=== PATIENT | female | born 1940 | race Caucasian/White ===

== ENCOUNTER 2019-01-17 14:34 | Observation (INO) | payer MEDICARE ==
[2019-01-17 16:04] LABS: #Basophils 0.1 thou/uL (0.0-0.2); #Eosinphils 0.1 thou/uL (0.0-0.7); #Lymphocytes 1.2 thou/uL (1.20-3.40); #Monocytes 0.5 thou/uL (0.11-0.59); %Basophils 0.6 % (0.0-1.0); %Eosinophils 1.1 % (0.0-10.0); %Lymphocytes 13.9 % (21.0-51.0); %Neutrophils 78.4 % (42.0-75.0); Hemoglobin 13.7 g/dL (12.0-16.0); Mean Corpuscular HGB CONC 31.4 g/dL (32.0-36.0); Mean Corpuscular Hemoglobin 28.6 pg (27.0-31.0); Mean Corpuscular Volume 90.9 fL (78.0-98.0); Mean Platelet Volume 7.4 fL (7.4-10.4); Platelet Count 207 thou/uL (130-400); RBC Distribution Width 12.1 % (11.5-14.5); Red Blood Cell (RBC) Count 4.79 mill/uL (4.20-5.40); White Blood Cell (WBC) Count 8.9 thou/uL (4.8-10.8)
[2019-01-17 16:31] LABS: ALT (SGPT) 20 U/L (8-55); AST (SGOT) 18 U/L (5-34); Albumin 4.5 g/dL (3.4-4.8); Alkaline Phosphatase 64 U/L (40-150); Anion Gap 11 mmol/L (10-20); BUN (Urea Nitrogen) 24 mg/dL (9.8-20.1); Bilirubin, Total 0.3 mg/dL (0.2-1.2); Calc. Creatinine Clearance 0 mL/min (70-130); Calcium 9.8 mg/dL (7.8-10.44); Carbon Dioxide 26 mmol/L (23-31); Chloride 109 mmol/L (98-107); Estimated GFR-MDRD 45; Globulin 2.8 g/dL (2.4-3.5); Glucose 100 mg/dL (83-110); Protein, Total 7.3 g/dL (6.0-8.3); Sodium 141 mmol/L (136-145)
--- NOTE | 2019-01-17 16:43 | RAD ---
PA AND LATERAL VIEWS CHEST: 01/17/19 HISTORY: High blood pressure. FINDINGS: The heart size is normal. The aorta is tortuous. The lungs are expanded without focal areas of consol idation, pneumothoraces, or pleural effusions. There are degenerative changes in the spine. IMPRESSION: No acute process. POS: ISABEL
[2019-01-17] MEDS ORDERED: Labetalol HCl 100 MG/20 ML VIAL ONE (17:10)
[2019-01-17] MEDS ORDERED: Aspirin Chewable 81 MG TAB ONE (18:06)
[2019-01-17] MEDS ORDERED: Nitroglycerin 2% Ointment 1 INCH/1 GM Packet ONE ×2 (18:16→21:33)
--- NOTE | 2019-01-17 20:09 | CT ---
CT BRAIN WITHOUT CONTRAST: HISTORY:Dizziness, nausea, hypertension FINDINGS: There is a 1 cm calcified meningioma in the left posterior parietal region. No evidence of acute infarct, hemorrhage, midline shift or abnormal extra-axial fluid collections is seen. The ventricular size is appropriate and the basilar cisterns are patent. The bony calvarium is intact. The mastoid air cells are well aerated. There is mild mucosal disease in the paranasal sinuses. IMPRESSION: No CT evidence of acute intracranial process.
[2019-01-17] MEDS ORDERED: Ondansetron ODT 4 MG TAB PO PRN (22:31)
[2019-01-17] MEDS ORDERED: Acetaminophen 325 MG TAB PO PRN (22:31)
[2019-01-17] MEDS ORDERED: Ondansetron PF 4 MG/2 ML Vial IVP PRN (22:31)
[2019-01-18] MEDS ORDERED: PROVENTIL INHALER 6.7 G (200 INHALATIONS) INH PRN (01:17)
[2019-01-18 01:21] VITALS: BMI 28.3
[2019-01-18] MEDS ORDERED: hydrALAZINE 20 MG/ML VIAL SLOW IVP PRN (01:22)
[2019-01-18] MEDS: traMADol HCl 50 MG TAB PO PRN ×2 (02:09→20:55)
--- NOTE | 2019-01-18 03:58 | HP ---
PRIMARY CARE DOCTOR: None reported. CODE STATUS: Full code. TIME OF EVALUATION: 9:15 p.m. CHIEF COMPLAINT: "I get dizzy and have very high blood pressure." HISTORY OF PRESENT ILLNESS: This 78-year-old female patient, past medical history of hypertension, asthma, and COPD, came to the hospital after having an episode of dizziness. Patient reported that she was with her dog trying to place the leash from the dog, all of the sudden she started having severe dizziness. She was unable to stand up. She has to get her phone and call for help. She did not fall. Symptoms were sudden, associated with nausea. No clear triggers. Alleviating factors were severe given her inability to walk. REVIEW OF SYSTEMS: CONSTITUTIONAL: No fever or chills or generalized weakness. RESPIRATORY: No cough or sputum production or shortness of breath. CARDIOVASCULAR: No chest pain or palpitation. GASTROINTESTINAL: No nausea, no vomiting, diarrhea, or abdominal pain. ELEVATOR SUPERVISOR: Patient had dizziness. No headache or feeling lightheaded. GENITOURINARY: No burning on urination. EXTREMITIES: No leg swelling. All other systems were reviewed and negative, except for the findings mentioned above. PAST MEDICAL HISTORY: As mentioned in HPI. SURGICAL HISTORY: Hysterectomy and oral surgery. PSYCH HISTORY: Anxiety and depression. FAMILY HISTORY: Reviewed and non contributory for current presentation. SOCIAL HISTORY: No alcohol. No drugs. No smoking history. Patient lives at home alone. ALLERGIES: KNOWN ALLERGIES TO IODINE. MEDICATIONS: Reported medication; 1. Lisinopril. 2. ProAir HFA. PHYSICAL EXAMINATION: VITAL SIGNS: On presentation, blood pressure with heart rate 77, respiratory rate was 16, temperature 98.2 pain was 5, and oxygen saturation was 96. GENERAL APPEARANCE: The patient is alert and oriented, not in acute distress. HEENT: Eyes; normal conjunctivae. Moist oral mucosa. Anicteric. No JVD. RESPIRATORY: Bilateral air entry. No rales. No wheezes. Symmetric expansion. CARDIOVASCULAR: Normal rate, regular rhythm. No murmurs. No gallop. No edema. Patient is hypertensive. ABDOMEN: Soft. Normal bowel sounds. MUSCULOSKELETAL: Baseline range of motion and strength. No tenderness. SKIN: Warm, intact. No pallor. No rash. No redness. Peripheral pulses are present. Capillary refill seems to be intact. NEUROLOGIC: No evidence of any new focal weakness. Patient has horizontal nystagmus. Baseline speech. 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 Other cranial nerves seems to be intact. PSYCH: Patient is in good mood. No anxiety. Optimal judgment. LABORATORY DATA: EKG; patient has sinus rhythm with some PACs, left anterior fascicular block, rate 65 with [place] 170, QRS 122, and QT corrected 426. Chest x- ray, no acute process. Brain CT, no CTA evidence of acute intracranial process. LABORATORY DATA: Reviewed. The patient has white count 8.9, hemoglobin 13.7, MCV 90.9, and platelet count 207. Chemistry; sodium 141, potassium 5.0, chloride 109, carbon dioxide 26, anion gap 11, BUN 24, creatinine 1.16, GFR 45, glucose 100, calcium 9.8, total bilirubin 0.3, AST 18, ALT 20, and alk phos 64. Troponin was negative. Serum total protein 7.3, albumin 4.5 with globulin 2.8, and albumin-globulin ratio is 1.6. ASSESSMENT AND PLAN: The patient will be placed in the hospital with following medical problems: 1. Possible transient ischemic attack. Patient has significant vertigo and she was unable to stand up or walk, so we are ordering stroke protocol. By the time of my examination, patient reported still having the same symptoms. She also has some horizontal nystagmus that could be related to the symptoms. We will follow the stroke protocol , Neuro evaluation. tele monitoring. 2. Hypertensive urgency. We will allow some permissive hypertension due to stroke, we will reconcile home medications. 3. History of asthma. This is chronic, stable. No need for any acute intervention at this point. Reconcile home medications. 4. Deep venous thrombosis prophylaxis. Job ID: [id number] [facility]
[2019-01-18 05:35] LABS: #Eosinphils 0.2 thou/uL (0.0-0.7); #Lymphocytes 1.6 thou/uL (1.20-3.40); #Monocytes 0.8 thou/uL (0.11-0.59); #Neutrophils 5.1 thou/uL (1.40-6.50); %Basophils 0.3 % (0.0-1.0); %Eosinophils 2.8 % (0.0-10.0); %Lymphocytes 20.5 % (21.0-51.0); %Monocytes 9.8 % (0.0-10.0); %Neutrophils 66.5 % (42.0-75.0); Hemoglobin 11.6 g/dL (12.0-16.0); Mean Corpuscular HGB CONC 31.8 g/dL (32.0-36.0); Mean Corpuscular Hemoglobin 28.8 pg (27.0-31.0); Mean Corpuscular Volume 90.7 fL (78.0-98.0); Mean Platelet Volume 7.6 fL (7.4-10.4); Platelet Count 176 thou/uL (130-400); RBC Distribution Width 12.1 % (11.5-14.5); Red Blood Cell (RBC) Count 4.04 mill/uL (4.20-5.40); White Blood Cell (WBC) Count 7.6 thou/uL (4.8-10.8)
[2019-01-18 05:57] LABS: Anion Gap 11 mmol/L (10-20); BUN (Urea Nitrogen) 20 mg/dL (9.8-20.1); Calc. Creatinine Clearance 45 mL/min (70-130); Carbon Dioxide 24 mmol/L (23-31); Cardiac Risk 3.9 (Less than 4.5); Chloride 106 mmol/L (98-107); Cholesterol 193 mg/dl (< 200 Desired); Estimated GFR-MDRD 50; Glucose 87 mg/dL (83-110); HDL Cholesterol 50 mg/dL (>60 Neg Risk); LDL Cholesterol, Calculated 122 mg/dL; Potassium 3.9 mmol/L (3.5-5.1); Sodium 137 mmol/L (136-145); Triglycerides 107 mg/dL (Less than 150)
[2019-01-18] MEDS: Aspirin 325 mg Enteric Coated Tablet PO SCH (08:54)
[2019-01-18] MEDS: Enoxaparin Sodium 40 MG/0.4 ML SYRINGE SC SCH (08:54)
[2019-01-18] MEDS: Lisinopril 20 MG TAB PO SCH (08:55)
--- NOTE | 2019-01-18 08:57 | ULT ---
CAROTID DOPPLER: Ultrasound and Doppler studies performed on the extracranial carotid arteries. Color Doppler, spectra l analysis, and velocity recordings obtained. INDICATION: Stroke FINDINGS: Ultrasound reveals echogenic plaque in both bulb regions. Velocity recordings are increased in the right internal carotid artery. Velocities are recorded at 14 8 cm/s systolic. This indicates hemodynamically significant stenosis in the 50-70% range. Vertebral show antegrade flow. IMPRESSION: 1. Evidence of hemodynamically significant stenosis in the right internal carotid artery. Further abebe luation with CTA neck recommended.
[2019-01-18] MEDS ORDERED: diphenhydrAMINE 50 MG in Sodium Chloride 0.9% 50 ML IVPB SCH (11:45)
[2019-01-18] MEDS ORDERED: diphenhydrAMINE 50 MG/ML VIAL IVP SCH (11:45)
--- NOTE | 2019-01-18 11:56 | MRI ---
MRI Brain WO Con HISTORY:Dizziness, syncope and hypertension. COMPARISON: 01/17/2019 CT examination. FINDINGS: There is mild ventricular and sulcal prominence. Areas of increased T2 and FLAIR hyperinten sity are seen consistent with chronic white matter change. On the diffusion-weighted sequence there is no signs for acute infarct. No intra or extra-axial mass is identified. Mastoid air cells are clear there is some mucosal change within the right maxillary sinus. IMPRESSION: No acute intracranial abnormalities.
[2019-01-18] MEDS ORDERED: Amlodipine 5 MG TAB PO SCH (12:45)
--- NOTE | 2019-01-18 17:11 | PRG ---
DATE OF SERVICE: 01/18/2019 SUBJECTIVE: Ms. Tamez is a very pleasant 78-year-old female with past medical history significant for hypertension and history of tobacco abuse, who presented to the hospital with complaint of acute onset of dizziness. She reported that the room felt as if it was spinning and she had some associated nausea. She was actually trying to put a leash on her dog to go walking, but her symptoms forced her to lie down. Given the patient's risk factors, she is undergoing stroke workup. Her presenting symptoms have resolved. Her blood pressure has continued to be elevated despite receiving her home medication lisinopril. The patient does state that her blood pressure runs high at home in the 160s to 180s. The patient reports no chest pain or shortness of breath. She has no abdominal symptoms at this time. Her appetite is good. OBJECTIVE: VITAL SIGNS: Blood pressure 185/90, pulse is 59 to 64, O2 saturation is 95% on room air, temperature is 98.3. GENERAL: The patient is an elderly female, resting in bed, in no acute distress. HEENT: Head; atraumatic, normocephalic. Mucous membranes are moist. Extraocular movements intact. NECK: No lymphadenopathy. Trachea is midline. No JVD. CV: S1 and S2. Regular rate and rhythm. No appreciable murmurs, rubs, or gallops. LUNGS: Regular respiratory rate and pattern, overall clear. ABDOMEN: Positive bowel sounds. Soft, nontender. EXTREMITIES: No edema. +2 DP pulses bilaterally. SKIN: Warm and dry. No obvious rashes or abrasions. NEUROLOGIC: Cranial nerves 2 through 12 are intact. The patient is nonfocal. LABORATORY DATA: Hemoglobin 11.6, hematocrit 36.7, white blood cell count 7.6, platelet count 176. Sodium 137, potassium 3.9, chloride 106, carbon dioxide 24, creatinine 1.06, triglycerides 107, cholesterol 193, LDL 122, HDL 50. ASSESSMENT: 1. Dizziness, with presenting symptoms consistent with vertigo. Stroke workup has revealed carotid artery stenosis on the right. 2. Carotid artery stenosis per carotid duplex scan with velocities in the right internal carotid consistent with a 50% to 70% stenosis. 3. Hypertension, poorly controlled. 4. History of tobacco abuse. 5. Sinus bradycardia in the 50s, asymptomatic. 6. Iodine contrast allergy. PLAN: Given the patient's new diagnosis of carotid artery stenosis, we will proceed with CT angiogram of the neck. Will also initiate statin therapy with Lipitor 20 mg q.h.s. Regarding her hypertension, we will add amlodipine 5 mg daily and continue her lisinopril, avoiding beta-jose secondary to borderline bradycardia. May need to also add hydralazine if her blood pressure does not improve. She is being pretreated for her contrast allergy with Benadryl and prednisone. Further recommendations based on findings of imaging. We will also continue aspirin. Appreciate Neurology recommendations. Further recommendations based on hospital course. The care of this patient has been discussed with Dr. Ley, who agrees with the above. Job ID: [id number] [facility]
[2019-01-18] MEDS: predniSONE 50 MG TAB PO SCH (20:53)
[2019-01-18] MEDS ORDERED: Atorvastatin Calcium 20 MG TAB PO SCH (21:00)
--- NOTE | 2019-01-18 22:56 | CON ---
DATE OF CONSULTATION: 01/18/2019 CHIEF COMPLAINT: Dizziness. HISTORY OF PRESENT ILLNESS: The patient is a 78-year-old lady, who reports she had a dizzy spell once recently before prior to admission. She was trying to leash her dog, she bent down to do this, and she felt spinning sensation, lost her balance, and she was lying on the floor for about 5 minutes. She has had inner ear infections in the past and this dizzy spell is different. Her grandson came and got her, when she called in, she took another blood pressure medication and aspirin prior to coming in. She is not on aspirin on a daily basis. She feels that it makes her bruise. With this spell, she did not have any weakness or numbness or double vision or nausea. PAST MEDICAL HISTORY: She has anxiety, depression, and right eye macular degeneration. PAST SURGICAL HISTORY: Hysterectomy, oral surgery for . SOCIAL HISTORY: She does not smoke or drink alcohol. She lives by self. She is retired. She used to do clerical work. ALLERGIES: SHE HAS IODINE ALLERGY, WHICH CAUSES ITCHING. FAMILY HISTORY: There is no family history of stroke. Mother had coronary artery disease and history of hypertension in both her parents. ALLERGIES: SHE IS ALLERGIC TO CEFACLOR, IODINE, IODIDE-CONTAINING PRODUCTS, PENICILLIN. IODINE CAUSES ITCHING. REVIEW OF SYSTEMS: PULMONARY: Negative for shortness of breath or cough. CARDIAC: Negative for chest pain. GI: Negative for diarrhea, vomiting, or nausea. GENITOURINARY: Negative for bladder dysfunction. NEUROLOGICAL: Positive for dizziness. ENT: Positive for prior inner ear infection. LABORATORY DATA AND DIAGNOSTIC STUDIES: Laboratory workup; white count 7.6, hemoglobin 11.6, hematocrit 36.7, and platelet count 176. Chemistry; sodium 137, potassium 3.9, chloride 106, bicarb 24, BUN 20, creatinine 1.06, glucose 87, triglycerides 107, cholesterol 193, LDL 122, HDL 50, heart disease risk ratio 3.9. Her CT of the head was completed and it did not show any evidence of acute intracranial process. She also completed an MRI of the brain, which showed no acute infarct. She had an echocardiogram, which was normal and her carotid Doppler study showed hemodynamically significant stenosis in the right ICA, and further evaluation with CT and neck is recommended. HOME MEDICATIONS: Reviewed. PHYSICAL EXAMINATION: VITAL SIGNS: Temperature 98.3, blood pressure 198/91, and pulse is 59. GENERAL APPEARANCE: Well-built, well-nourished, very pleasant lady. CHEST: Clear vesicular breathing. CARDIOVASCULAR: S1 and S2 heard. No murmurs. ABDOMEN: Soft. NEUROLOGICAL: Higher intellectual functions normal. Cranial nerves, pupils 4 mm, reactive bilaterally. No facial asymmetry is noted. Sensation of face is intact. Normal hearing bilaterally. Tongue midline. No atrophy noted. Motor examination, bulk normal. Tone normal. Strength 5/5 in upper and lower extremities. Muscle groups tested are iliopsoas, hamstrings, quadriceps, ankle dorsiflexion, plantar flexion, deltoid, biceps, triceps, wrist extension and flexion, finger extension and flexion, and cerebellar [id number] and [id number] are normal. Deep tendon reflexes 2+ throughout. Sensory normal to touch. IMPRESSION: The patient is a 78-year-old lady with history of inner ear infections and had an episode similar to vertigo prior to arrival, but she was on the floor for 5 minutes. Her examination currently is normal. She has right internal carotid artery stenosis on carotid Doppler. We need to explore this possibility of carotid artery disease further, which could be causing her to have dizziness. RECOMMENDATIONS: I ordered CT angiogram. If CT angio is abnormal, please refer her to Vascular Surgery. Please call Neurology if you have any further questions. For now, we can continue anti-platelet agents such as aspirin along with statin for stroke prophylaxis. Job ID: [id number]
[2019-01-19] MEDS: predniSONE 50 MG TAB PO SCH ×2 (01:15→08:22)
[2019-01-19 05:27] LABS: Anion Gap 12 mmol/L (10-20); BUN (Urea Nitrogen) 20 mg/dL (9.8-20.1); Calc. Creatinine Clearance 36 mL/min (70-130); Calcium 9.3 mg/dL (7.8-10.44); Carbon Dioxide 26 mmol/L (23-31); Chloride 104 mmol/L (98-107); Estimated GFR-MDRD 39; Glucose 149 mg/dL (83-110); Potassium 4.5 mmol/L (3.5-5.1); Sodium 137 mmol/L (136-145)
[2019-01-19 05:29] LABS: Cardiac Risk 3.8 (Less than 4.5)
[2019-01-19] MEDS ORDERED: diphenhydrAMINE 50 MG CAP PO SCH (08:00)
[2019-01-19] MEDS: Aspirin 325 mg Enteric Coated Tablet PO SCH (08:22)
[2019-01-19] MEDS: Enoxaparin Sodium 40 MG/0.4 ML SYRINGE SC SCH (08:22)
[2019-01-19] MEDS: Lisinopril 20 MG TAB PO SCH (08:23)
[2019-01-19] MEDS ORDERED: cloNIDine 0.1 MG TAB PO PRN (08:57)
[2019-01-19] MEDS ORDERED: Amlodipine 5 MG TAB PO SCH (09:00)
[2019-01-19] MEDS ORDERED: Sodium Chloride 0.9% 1,000 ML IV SCH (09:00)
--- NOTE | 2019-01-19 10:22 | CT ---
CONTRAST ENHANCED CTA BRAIN AND NONCONTRAST ENHANCED CTA BRAIN: HISTORY: Vertigo. TECHNIQUE: Noncontrast enhanced CT images of the brain obtained. This is followed by contrast-enhanc ed CTA of the brain. 2-D and 3-D reconstruction images performed on an independent 3-D workstation. FINDINGS: There is a left temporal occipital area of osseous calcification possibly representing a calcified me ningioma or osteoma. The brain is otherwise unremarkable with no evidence of masses or lesions. CTA images demonstrate areas of bilateral apical lung parenchymal scarring. The aortic arch is unremarkable. The right brachiocephalic artery is patent. The right and left common carotid arteries are patent without evidence of significant plaques or sten osis. Minimal areas of atherosclerotic plaque seen in the distal most aspect of the right CCA. The right and left internal carotid arteries bilaterally are patent. Some atherosclerotic plaque seen in the proximal portion of the left vertebral artery. Vertebral jenna oni are otherwise unremarkable. The basilar artery is unremarkable. Intracranial CTA demonstrates normal flow seen in the IVONNE, MCA and IN[employer]OR[employer] CENT[employer] MANAGER vessels. No evidence of vascular malformation seen. IMPRESSION: No evidence of significant arterial vascular abnormality seen. Transcribed Date/Time: 01/19/2019 10:43 AM
[2019-01-19] MEDS ORDERED: Sodium Chloride 0.9% 500 ML IVPB SCH (13:30)
[2019-01-19 16:01] VITALS: TEMP 97.7
[2019-01-19 16:18] VITALS: BP 168/63
[2019-01-19] MEDS ORDERED: cloNIDine 0.1 MG TAB PO SCH (17:15)
--- NOTE | 2019-01-20 16:05 | CT ---
CONTRAST ENHANCED CTA BRAIN AND NONCONTRAST ENHANCED CTA BRAIN AND NECK: HISTORY: Vertigo. TECHNIQUE: Noncontrast enhanced CT images of the brain obtained. This is followed by contrast-enhanc ed CTA of the brain. 2-D and 3-D reconstruction images performed on an independent 3-D workstation. FINDINGS: There is a left temporal occipital area of osseous calcification possibly representing a calcified me ningioma or osteoma. The brain is otherwise unremarkable with no evidence of masses or lesions. CTA images demonstrate areas of bilateral apical lung parenchymal scarring. The aortic arch is unremarkable. The right brachiocephalic artery is patent. The right and left common carotid arteries are patent without evidence of significant plaques or sten osis. Minimal areas of atherosclerotic plaque seen in the distal most aspect of the right CCA. The right and left internal carotid arteries bilaterally are patent. Some atherosclerotic plaque seen in the proximal portion of the left vertebral artery. Vertebral jenna oni are otherwise unremarkable. The basilar artery is unremarkable. Intracranial CTA demonstrates normal flow seen in the IVONNE, MCA and BARREL PLATER vessels. No evidence of vascular malformation seen. IMPRESSION: No evidence of significant arterial vascular abnormality seen. Transcribed Date/Time: 01/20/2019 4:04 PM
== END 2019-01-19 17:31 | disposition home or self-care (01) ==
LOC: ERS 14:34 → 2SE 20:48
PROVIDERS: ADMIT Hospitalist; ATTEND Hospitalist
DX: R42 Dizziness and giddiness (principal); I16.0 Hypertensive urgency; I10 Essential (primary) hypertension; J44.9 Chronic obstructive pulmonary disease, unspecified; F41.9 Anxiety disorder, unspecified; F32.9 Major depressive disorder, single episode, unspecified; I65.21 Occlusion and stenosis of right carotid artery; Z79.899 Other long term (current) drug therapy; Z91.041 Radiographic dye allergy status; Z88.0 Allergy status to penicillin; Z88.1 Allergy status to other antibiotic agents
CPT/HCPCS: 70450; 70496; 70498; 70551; 71046; 80048 ×2; 80053; 80061 ×2; 84484; 85025 ×2; 93005; 93306; 93880; 96361; 96372 ×2; 96374; 96375; 96376; 97139 ×7; 97535; 99285; G0378 ×2; 36415; J0360; J1650; Q0153; Q0162

== ENCOUNTER 2019-03-24 08:18 | Outpatient (CLI) | payer MEDICARE ==
--- NOTE | 2019-03-24 10:18 | SJPRAD ---
Exam: 3 VIEWS LUMBAR SPINE: HISTORY: Low back pain. COMPARISON: None. FINDINGS: 5 lumbar type vertebral bodies. Vertebral body height is maintained. No fracture. No signif icant loss of disc space height. Minimal osteophyte formation at L3-L4. Mild hypertrophic changes in the posterior element at L4-L5 and L5-S1. IMPRESSION: No significant loss of disc space height. No fracture. Transcribed Date/Time: 03/24/2019 10:23 AM
== END 2019-03-24 08:19 | disposition home or self-care (01) ==
LOC: MWLC RAD 08:18
PROVIDERS: ATTEND Family Medicine
DX: M54.5 Low back pain (principal)

== ENCOUNTER 2019-05-07 12:07 | Outpatient (CLI) | payer MEDICARE ==
--- NOTE | 2019-05-07 13:22 | MRI ---
MRI OF THE LUMBAR SPINE WITHOUT CONTRAST: 05/07/19 INDICATION: Low back pain. COMPARISON: Prior exam dated 03/24/19. FINDINGS: There are five lumbar type vertebrae. Conus is seen to terminate at approximately L1. There is mild g rade I anterolisthesis of L3 on L4 which is likely degenerative. There is a 1.6 cm T1 hyperintense, T2 hyperintense lesion involving the left mid kidney which may ref lect a slightly proteinaceous cyst. No enlarged lymph nodes are evident. At L5-S1, there is a broad based disc bulge with moderate facet joint degenerative change. No appreci able neural foraminal narrowing. Broad based bulge and facet hypertrophy does encroach upon the later al recesses but does not definitely impinge the traversing S1 nerve roots. At L4-5, there is a broad based bulge with facet hypertrophy and ligamentum flavum hypertrophy. There is an anteromedial protruding synovial cyst off of the right L4-5 facet complex measuring 7.5 mm. Th e cyst in addition to the disc degeneration and facet osteoarthritic change induces moderate central canal narrowing. There is mild bilateral neural foraminal narrowing. At L3-4, there is a broad based bulge with ligamentum flavum hypertrophy and facet hypertrophy induci ng at least mild left lateral recess narrowing and mild central canal narrowing. There is mild bilate ral neural foraminal narrowing, left greater than right. At L2-3, there is a broad based bulge but no appreciable central canal or neural foraminal narrowing. At L1-2, there is no appreciable central canal or neural foraminal narrowing. T12-L1, there is no appreciable central canal or neural foraminal narrowing. IMPRESSION: 1. Moderate central canal narrowing at L4-5 due to a broad based bulge, facet hypertrophy, ligam entum flavum hypertrophy and anteromedially protruding synovial cyst off the right L4-5 facet complex . 2. Mild left lateral recess narrowing at L3-4 with mild bilateral neural foraminal narrowing, le ft greater than right. 3. Mild bilateral neural foraminal narrowing at L4-5. 4. T1 hyperintense, T2 hyperintense lesion of the left mid kidney requires further evaluation. R enal ultrasound is recommended. POS: OFF
== END 2019-05-07 12:08 | disposition home or self-care (01) ==
LOC: SCSMRI 12:07
PROVIDERS: ATTEND Family Medicine
DX: M54.5 Low back pain (principal); M48.061 Spinal stenosis, lumbar region without neurogenic claudication; M51.9 Unspecified thoracic, thoracolumbar and lumbosacral intervertebral disc disorder; M51.26 Other intervertebral disc displacement, lumbar region; N28.9 Disorder of kidney and ureter, unspecified; M71.38 Other bursal cyst, other site
CPT/HCPCS: 72148

== ENCOUNTER 2019-05-12 12:31 | Emergency (ER) | payer MEDICARE ==
[2019-05-12 13:22] LABS: #Lymphocytes 0.9 thou/uL (1.20-3.40); #Monocytes 0.6 thou/uL (0.11-0.59); #Neutrophils 7.2 thou/uL (1.40-6.50); %Basophils 0.1 % (0.0-1.0); %Eosinophils 0.5 % (0.0-10.0); %Lymphocytes 10.5 % (21.0-51.0); %Monocytes 6.6 % (0.0-10.0); %Neutrophils 82.3 % (42.0-75.0); Hemoglobin 11.6 g/dL (12.0-16.0); Mean Corpuscular HGB CONC 32.7 g/dL (32.0-36.0); Mean Corpuscular Hemoglobin 30.2 pg (27.0-31.0); Mean Corpuscular Volume 92.4 fL (78.0-98.0); Mean Platelet Volume 7.3 fL (7.4-10.4); Platelet Count 238 thou/uL (130-400); Red Blood Cell (RBC) Count 3.83 mill/uL (4.20-5.40); White Blood Cell (WBC) Count 8.7 thou/uL (4.8-10.8)
[2019-05-12 13:44] LABS: ALT (SGPT) 22 U/L (8-55); AST (SGOT) 20 U/L (5-34); Albumin 4.4 g/dL (3.4-4.8); Alkaline Phosphatase 54 U/L (40-150); Anion Gap 12 mmol/L (10-20); BUN (Urea Nitrogen) 26 mg/dL (9.8-20.1); Bilirubin, Total 0.6 mg/dL (0.2-1.2); Calc. Creatinine Clearance 0 mL/min (70-130); Calcium 9.8 mg/dL (7.8-10.44); Carbon Dioxide 25 mmol/L (23-31); Chloride 105 mmol/L (98-107); Estimated GFR-MDRD 42; Globulin 2.9 g/dL (2.4-3.5); Glucose 101 mg/dL (83-110); Lipase 30 U/L (8-78); Potassium 4.3 mmol/L (3.5-5.1); Protein, Total 7.3 g/dL (6.0-8.3); Sodium 138 mmol/L (136-145)
[2019-05-12] MEDS ORDERED: Ondansetron PF 4 MG/2 ML Vial ONE ×2 (14:46→14:49)
[2019-05-12] MEDS ORDERED: Morphine 4 MG/ML VIAL ONE (14:46)
--- NOTE | 2019-05-12 15:39 | CT ---
CT Abdomen Pelvis WO Con History: Abdominal pain. Comparison: None. Findings: Multiple peripheral patchy opacities with subpleural sparing in the lung bases. There are a lso peripheral centrilobular nodules. No pericardial effusion. There is cholelithiasis. There is no nephroureterolithiasis or hydroureteron ephrosis. No secondary evidence of a recently passed stone. Appendix is visualized and is normal. No free intraperitoneal gas or fluid. Moderate facet arthrosis lower lumbar spine. Impression: 1. No nephroureterolithiasis or hydroureteronephrosis. No secondary evidence of a recently passed sto ne. 2. Low-grade proximal small bowel wall thickening with mid small bowel low-grade dilatation suggestin g enteritis. 3. Abnormal lung base markings with peripheral centrilobular nodules with a component of subpleural s paring as well as some patchy opacities within both lower lobes. This could reflect organizing pneumonia or NSIP. Nonemergent follow-up CT of the chest in 2-3 months recommended. 4. Normal appendix. 5. No evidence for bowel obstruction. 6. Hypodensity anterior cortex interpolar left kidney suggestive of a cyst. 7. Cholelithiasis without cholecystitis.
== END 2019-05-12 16:41 | disposition home or self-care (01) ==
LOC: ERS 12:31
DX: K52.9 Noninfective gastroenteritis and colitis, unspecified (principal); E86.0 Dehydration; R91.1 Solitary pulmonary nodule; I10 Essential (primary) hypertension; J44.9 Chronic obstructive pulmonary disease, unspecified; F41.9 Anxiety disorder, unspecified; F31.9 Bipolar disorder, unspecified; Z87.891 Personal history of nicotine dependence; Z79.899 Other long term (current) drug therapy
CPT/HCPCS: 36415; 74176; 80053; 83690; 85025; 96361; 96374; 96375; J2270; J2405

== ENCOUNTER 2019-05-28 17:56 | Emergency (ER) | payer MEDICARE ==
[2019-05-28 19:03] LABS: Hemoglobin 10.7 g/dL (12.0-16.0); Mean Corpuscular HGB CONC 32.2 g/dL (32.0-36.0); Mean Corpuscular Hemoglobin 29.9 pg (27.0-31.0); Mean Corpuscular Volume 92.8 fL (78.0-98.0); Mean Platelet Volume 7.5 fL (7.4-10.4); Platelet Count 240 thou/uL (130-400); RBC Distribution Width 11.8 % (11.5-14.5); Red Blood Cell (RBC) Count 3.58 mill/uL (4.20-5.40); White Blood Cell (WBC) Count 14.9 thou/uL (4.8-10.8)
[2019-05-28 19:23] LABS: Band 24 % (5-11); Lymphocytes 1 % (21-51); MDiff Complete? YES; Monocytes 7 % (0-10); Neutrophil 68 % (42-75); Platelet Morphology Comment Appears Adequate; Polychromasia SLIGHT = 2-3 cells (100X) (0-2/hpf); Toxic Granulation SLIGHT; Vacuoles SLIGHT
[2019-05-28 19:23] LABS: ALT (SGPT) 12 U/L (8-55); AST (SGOT) 11 U/L (5-34); Albumin 3.9 g/dL (3.4-4.8); Alkaline Phosphatase 58 U/L (40-150); Anion Gap 16 mmol/L (10-20); BUN (Urea Nitrogen) 37 mg/dL (9.8-20.1); Bilirubin, Total 0.3 mg/dL (0.2-1.2); Calc. Creatinine Clearance 0 mL/min (70-130); Carbon Dioxide 21 mmol/L (23-31); Chloride 104 mmol/L (98-107); Estimated GFR-MDRD 23; Globulin 2.9 g/dL (2.4-3.5); Glucose 99 mg/dL (83-110); Potassium 3.8 mmol/L (3.5-5.1); Protein, Total 6.8 g/dL (6.0-8.3); Sodium 137 mmol/L (136-145)
[2019-05-28 20:59] LABS: Bilirubin Negative (Negative); Blood, Urine Trace (Negative); Clarity Clear (Clear); Glucose, Urine (Dipstick) Normal (Negative); Leukocyte 250 Leu/uL (Negative); Mucous/LPF Rare LPF (<2+); Nitrite Negative (Negative); Protein, Urine (Dipstick) 20 mg/dL (Neg-Trace); RBC/HPF 0-3 HPF (0-3); Renal Epithelial 0-3 HPF (None Seen); Squamous Epithelial 0-3 HPF (0-3); Urobilinogen Normal mg/dL (Less than 2)
[2019-05-28 21:05] LABS: Bacteria/HPF 1+ HPF (None Seen)
--- NOTE | 2019-05-28 21:37 | CT ---
CT abdomen and pelvis noncontrast HISTORY: Flank pain. COMPARISON: 05/12/2019. FINDINGS: Each renal collecting system, ureter, and urinary bladder are decompressed without stone ap parent. Lack of contrast limits evaluation for other abnormalities. Nodular scarring and interstitial thicken ing at the lung bases are similar in appearance to the previous exam. Prominent calcification throughout the arterial structures. Multiple large hyperdense stones in the gallbladder lumen. Degene rative changes lumbar spine with central canal stenosis most severe at the L4-5 level. Hyperdense material now evident within the periphery of the right colon and cecum. No evidence of bowel obstruct ion. IMPRESSION: No CT evidence of urinary tract obstruction or calcification. Cholelithiasis. Atherosclerosis. Severe degenerative changes lumbar spine with central canal stenosis most severe at the L4-5 level
== END 2019-05-28 22:51 | disposition home or self-care (01) ==
LOC: ERS 17:56
DX: E86.0 Dehydration (principal); A04.72 Enterocolitis due to Clostridium difficile, not specified as recurrent; I10 Essential (primary) hypertension; J44.9 Chronic obstructive pulmonary disease, unspecified; F32.9 Major depressive disorder, single episode, unspecified; F41.9 Anxiety disorder, unspecified; Z87.891 Personal history of nicotine dependence; Z79.899 Other long term (current) drug therapy
CPT/HCPCS: 36415; 74176; 80053; 81003; 81015; 83605; 85025; 87040; 87045; 87046; 87086; 87324; 87427; 87449; 93005; 96360; 96361

== ENCOUNTER 2019-08-10 11:14 | Inpatient (IN) | payer MEDICARE ==
[2019-08-10 12:15] LABS: Mean Corpuscular HGB CONC 32.9 g/dL (32.0-36.0); Mean Corpuscular Hemoglobin 28.9 pg (27.0-31.0); Mean Corpuscular Volume 88.1 fL (78.0-98.0); Mean Platelet Volume 7.2 fL (7.4-10.4); Platelet Count 223 thou/uL (130-400); RBC Distribution Width 13.3 % (11.5-14.5); Red Blood Cell (RBC) Count 3.82 mill/uL (4.20-5.40); White Blood Cell (WBC) Count 21.5 thou/uL (4.8-10.8)
[2019-08-10 12:35] LABS: Band 13 % (5-11); Lymphocytes 5 % (21-51); MDiff Complete? YES; Monocytes 7 % (0-10); Neutrophil 73 % (42-75); Platelet Morphology Comment Appears Adequate; Polychromasia SLIGHT = 2-3 cells (100X) (0-2/hpf); Reactive Lymphocytes 2 % (0-10); Vacuoles SLIGHT
[2019-08-10 12:41] LABS: ALT (SGPT) 13 U/L (8-55); AST (SGOT) 13 U/L (5-34); Alkaline Phosphatase 61 U/L (40-110); Anion Gap 13 mmol/L (10-20); BUN (Urea Nitrogen) 25 mg/dL (9.8-20.1); Bilirubin, Total 0.8 mg/dL (0.2-1.2); Calc. Creatinine Clearance 0 mL/min (70-130); Calcium 8.9 mg/dL (7.8-10.44); Carbon Dioxide 21 mmol/L (23-31); Chloride 107 mmol/L (98-107); Estimated GFR-MDRD 33; Glucose 112 mg/dL (83-110); Potassium 3.7 mmol/L (3.5-5.1); Sodium 137 mmol/L (136-145)
[2019-08-10] MEDS ORDERED: metroNIDAZOLE 500 MG/100 ML BAG ONE (13:01)
[2019-08-10 13:14] LABS: Bilirubin Negative (Negative); Blood, Urine Trace (Negative); Clarity Turbid (Clear); Glucose, Urine (Dipstick) Normal (Negative); Leukocyte 500 Leu/uL (Negative); Nitrite Negative (Negative); Protein, Urine (Dipstick) 50 mg/dL (Neg-Trace); RBC/HPF 0-3 HPF (0-3); Squamous Epithelial 0-3 HPF (0-3); Urobilinogen Normal mg/dL (Less than 2)
[2019-08-10 13:26] LABS: Bacteria/HPF 2+ HPF (None Seen); Yeast-Budding None Seen HPF (None Seen)
[2019-08-10 13:27] LABS: Calcium Oxalate Crystals 1+ HPF (None Seen)
[2019-08-10] MEDS ORDERED: Acetaminophen 325 MG TAB PO PRN (14:53)
[2019-08-10] MEDS ORDERED: ALPRAZolam 0.25 MG TAB PO PRN (14:58)
--- NOTE | 2019-08-10 15:22 | RAD ---
EXAM: Chest PA and lateral: HISTORY: May COMPARISON: 01/17/2019, 05/18/2019 FINDINGS: Heart: Normal cardiac silhouette Aorta: Unremarkable Pulmonary vessels: Normal Costophrenic angles: Costophrenic angles are clear. Lungs: Chronic changes. Pneumothorax: No pneumothorax Osseous structures: No osseous abnormalities IMPRESSION: No acute cardiopulmonary process.
[2019-08-10] MEDS ORDERED: Acetaminophen 325 MG TAB ONE (16:36)
[2019-08-10] MEDS: Sodium Chloride 0.9% 1,000 ML IV SCH (17:55)
[2019-08-10] MEDS ORDERED: Famotidine 20 MG TAB PO SCH (21:00)
--- NOTE | 2019-08-10 21:10 | HP ---
PRESENTING COMPLAINT: Diarrhea and shortness of breath. HISTORY OF PRESENT ILLNESS: The patient with a past medical history of C diff x2, history of chronic obstructive airway disease, hypertension, hyperlipidemia, degenerative disk disease. The patient was at rehabilitation facility recently and completed antibiotic therapy 2 weeks ago and last night started having abdominal pain, mild with diarrhea. The patient had 2 episodes of diarrhea yesterday and 5 episodes today, been feeling very weak and tired. Also been feeling worsening shortness of breath with wheezing and with generalized weakness and mild dizziness. The patient being admitted for C diff and diarrhea exacerbation, stool for C diff sent from the emergency room. The patient also feels little nauseous. Denies vomiting. Denies runny nose, stuffy nose, or sore throat. Denies any temperature. SYSTEMIC REVIEW: As mentioned above. PAST MEDICAL HISTORY: As mentioned above. PAST SURGICAL HISTORY: 1. History of leukoplakia surgery. 2. Hysterectomy. SOCIAL HISTORY: Denies smoking, alcohol abuse, or drug abuse. FAMILY HISTORY: Reviewed and hypertension. ALLERGIES: TO CEFACLOR, IODIDE, IODINE, PENICILLIN. HOME MEDICATIONS: Inhalers. PHYSICAL EXAMINATION: VITAL SIGNS: Blood pressure 140/83, temperature 98.6, pulse 96, oxygen saturation 96%. GENERAL: The patient lying in bed comfortably, not in any distress; however, has wheezing. HEENT: Conjunctivae normal. Oral mucosa mildly dry. NECK: Supple. No JVD. No lymphadenopathy. CHEST: Vesicular breathing with prolonged expiration. Bilateral rhonchi present. HEART: Sounds normal. ABDOMEN: Mildly distended. Bowel sounds audible. No rebound, no guarding. EXTREMITIES: Minimal edema of feet positive. No rash. No cyanosis. LABORATORY DATA: CBC unremarkable except white blood cells 21.5, hemoglobin 11.0, platelet 223. CMP unremarkable except creatinine 1.53, BUN 25, carbon dioxide 21, ALT, AST normal. Lactic acid 1.2. Baseline creatinine 1.04. Stool cultures pending. Many gram-positive rods on stool, many gram-negative rods. EKG pending. IMPRESSION: 1. Diarrhea with possible Clostridium difficile recurrence. The patient has Clostridium difficile x2 in the past being on vancomycin, completed 2 weeks ago. I will get Infectious Disease consult. We will continue vancomycin p.o. We will continue fluids and continue electrolyte monitoring. Continue symptomatic management for nausea, vomiting. The patient has mild abdominal pain. If diarrhea persists and if patient has worsening pain, we will get a CT scan of abdomen. 2. Chronic obstructive pulmonary disease exacerbation. The patient has wheezing and shortness of breath with bilateral rhonchi. We will continue nebs q.4 hourly. We will hold steroids at present. If patient has persistent wheezing with no improvement, we will add steroids. 3. Acute kidney injury, most likely secondary to dehydration secondary to Clostridium difficile, diarrhea. We will continue close monitor BMP in the morning. 4. History of hypertension. Continue monitoring blood pressure. Continue blood pressure medication. 5. History of degenerative disk disease. Continue pain medication as needed. 6. Hyperlipidemia. We will recommend followup outpatient with lipid profile. 7. Deep venous thrombosis and gastrointestinal prophylaxis. Plan discussed with the patient and daughter, who is present at bedside. Job ID: [id number]
[2019-08-10] MEDS: Vancomycin HCl 25 MG/ML Oral PO SCH ×2 (21:37→23:55)
[2019-08-10] MEDS: Ondansetron PF 4 MG/2 ML Vial IVP PRN (21:40)
[2019-08-11] MEDS: Sodium Chloride 0.9% 1,000 ML IV SCH ×2 (03:49→13:40)
[2019-08-11 04:58] LABS: Anion Gap 10 mmol/L (10-20); BUN (Urea Nitrogen) 22 mg/dL (9.8-20.1); Calc. Creatinine Clearance 18 mL/min (70-130); Calcium 7.9 mg/dL (7.8-10.44); Carbon Dioxide 19 mmol/L (23-31); Chloride 113 mmol/L (98-107); Estimated GFR-MDRD 46; Glucose 97 mg/dL (83-110); Potassium 3.3 mmol/L (3.5-5.1); Sodium 139 mmol/L (136-145)
[2019-08-11 05:05] LABS: Band 9 % (5-11); Lymphocytes 6 % (21-51); MDiff Complete? YES; Mean Corpuscular HGB CONC 31.7 g/dL (32.0-36.0); Mean Corpuscular Hemoglobin 28.6 pg (27.0-31.0); Mean Platelet Volume 7.3 fL (7.4-10.4); Monocytes 6 % (0-10); Neutrophil 79 % (42-75); Platelet Count 177 thou/uL (130-400); Platelet Morphology Comment Appears Adequate; RBC Distribution Width 13.4 % (11.5-14.5); Red Blood Cell (RBC) Count 3.52 mill/uL (4.20-5.40); White Blood Cell (WBC) Count 16.8 thou/uL (4.8-10.8)
[2019-08-11] MEDS: Vancomycin HCl 25 MG/ML Oral PO SCH ×3 (06:26→16:59)
[2019-08-11] MEDS ORDERED: Non-Formulary Item 1 EACH (Fluticasone/Salmeterol [Advair Hfa 115/21 Inhaler] 2 INH) IH SCH (09:00)
[2019-08-11] MEDS ORDERED: Lisinopril 20 MG TAB PO SCH (09:00)
[2019-08-11] MEDS: Enoxaparin Sodium 40 MG/0.4 ML SYRINGE SC SCH (10:09)
[2019-08-11] MEDS: Gabapentin 300 MG CAP PO SCH ×3 (10:09→20:28)
[2019-08-11] MEDS: Amlodipine 5 MG TAB PO SCH (10:09)
[2019-08-11] MEDS: Escitalopram Oxalate 10 mg Tablet PO SCH (10:09)
[2019-08-11] MEDS: Lisinopril 20 MG TAB PO SCH (10:10)
[2019-08-11] MEDS: Ondansetron PF 4 MG/2 ML Vial IVP PRN (10:16)
[2019-08-11] MEDS ORDERED: Potassium Chloride 20 MEQ TAB PO SCH ×2 (15:00→23:00)
--- NOTE | 2019-08-11 15:42 | PRG ---
DATE OF SERVICE: 08/11/2019 SUBJECTIVE: The patient seen at bedside, who says that she feels better, has diarrhea, but overall feeling better. Says abdominal pain is mildly better. Denies any vomiting. Feels mild nausea. Overall feels weakness, but denies fever, but as per patient, she is overall feeling that shortness of breath is better. No wheezing noted. OBJECTIVE: VITAL SIGNS: Temperature 98.8, pulse 68, respirations 16, oxygen saturation 93%, blood pressure 123/60. GENERAL: The patient is lying in bed comfortably, not in distress. HEENT: Conjunctivae normal. Oral mucosa moist. NECK: Supple. No JVD. No lymphadenopathy. CHEST: No wheezing at present. HEART: Heart sound normal. ABDOMEN: Soft and nontender. No visceromegaly. EXTREMITIES: Negative edema of feet. LABORATORY DATA: BMP unremarkable except sodium 139, potassium 3.3, creatinine 1.13, BUN 22. CBC unremarkable except white blood cells 16.8, hemoglobin 10.0. UA, white blood cells 11 to 20, leukocyte esterase positive. Blood culture negative at present. C diff antigen and toxin are positive. Stool parasite negative. Negative for Campylobacter antigen. Chest x-ray negative for acute findings. EKG negative for acute findings. IMPRESSION: 1. Sepsis secondary to recurrent Clostridium difficile diarrhea. Clinically, the patient is improving. Stool for Clostridium difficile positive. Continue vancomycin p.o. The patient still has diarrhea, but as per patient, she is feeling better. WBC is improving. No fever. Pending evaluation by Dr. Mckenzie. 2. Acute kidney injury, most likely secondary to dehydration, improving. Continue fluids. We will monitor BMP in the morning. 3. Mild hypokalemia. Continue potassium replacement. Monitor BMP in the morning. 4. Chronic obstructive pulmonary disease exacerbation, currently improving. No wheezing noted today. The patient's shortness of breath is better. We will continue DuoNeb as needed. We will avoid steroids at present as currently wheezing improved. 5. Hypertension. Continue monitoring blood pressure. Continue blood pressure medication. 6. History of degenerative disk disease. Continue pain medication as needed. 7. Hyperlipidemia. Follow up lipid profile as an outpatient. 8. Deep venous thrombosis and gastrointestinal prophylaxis. PLAN: Discussed with the patient and nursing staff. We will transfer the patient to med/surg floor as a tele did not show any arrhythmia and the patient's shortness of breath is better, denies any chest pain. Job ID: [id number]
[2019-08-11] MEDS: 1/2 NS w/KCL 20 mEq 1,000 ML IV SCH (16:59)
[2019-08-11] MEDS: Mometasone/Formoterol 120 PUFF INHALER INH SCH (19:21)
[2019-08-11] MEDS: Famotidine 20 MG TAB PO SCH (20:28)
[2019-08-11] MEDS ORDERED: Prevnar 13-Val Conj/PF 0.5 ML SYRINGE IM ONE (21:00)
[2019-08-12] MEDS: Vancomycin HCl 25 MG/ML Oral PO SCH ×3 (00:41→11:48)
[2019-08-12] MEDS: 1/2 NS w/KCL 20 mEq 1,000 ML IV SCH ×3 (01:49→20:58)
[2019-08-12 05:43] LABS: #Eosinphils 0.5 thou/uL (0.0-0.7); #Lymphocytes 1.4 thou/uL (1.20-3.40); #Neutrophils 8.5 thou/uL (1.40-6.50); %Basophils 0.3 % (0.0-1.0); %Eosinophils 4.1 % (0.0-10.0); %Lymphocytes 11.9 % (21.0-51.0); %Monocytes 8.6 % (0.0-10.0); %Neutrophils 75.2 % (42.0-75.0); Hemoglobin 9.5 g/dL (12.0-16.0); Mean Corpuscular HGB CONC 30.8 g/dL (32.0-36.0); Mean Corpuscular Hemoglobin 28.1 pg (27.0-31.0); Mean Corpuscular Volume 91.2 fL (78.0-98.0); Platelet Count 184 thou/uL (130-400); RBC Distribution Width 13.3 % (11.5-14.5); Red Blood Cell (RBC) Count 3.38 mill/uL (4.20-5.40); White Blood Cell (WBC) Count 11.3 thou/uL (4.8-10.8)
[2019-08-12 06:01] LABS: Anion Gap 8 mmol/L (10-20); BUN (Urea Nitrogen) 18 mg/dL (9.8-20.1); Calc. Creatinine Clearance 46 mL/min (70-130); Calcium 8.5 mg/dL (7.8-10.44); Carbon Dioxide 20 mmol/L (23-31); Chloride 117 mmol/L (98-107); Estimated GFR-MDRD 54; Glucose 90 mg/dL (83-110); Potassium 4.3 mmol/L (3.5-5.1); Sodium 141 mmol/L (136-145)
[2019-08-12] MEDS: Mometasone/Formoterol 120 PUFF INHALER INH SCH ×2 (07:54→18:33)
--- NOTE | 2019-08-12 09:11 | PDOC.HOSPP ---
- Subjective Encounter Date: 08/12/19 Encounter Time: 09:09 Subjective: Chief complaint: diarrhea Subjective: Patient reports diarrhea too many episodes to count overnight, not as much abdominal pain, reports overall improved from yesterday. Patient and all problems new to me. - Objective Vital Signs & Weight: Vital Signs (12 hours) Temp Pulse Resp BP BP Pulse Ox 08/12/19 08:00 97.9 F 58 L 16 128/73 94 L 08/12/19 07:54 61 20 94 L 08/12/19 04:00 64 16 130/74 92 L 08/11/19 23:55 98.4 F 74 14 133/71 94 L 08/11/19 23:06 98.1 F 74 18 128/67 94 L Weight Admit Weight 140 lb 3.5 oz Weight 140 lb 10.479 oz I&O: 08/11/19 08/12/19 08/13/19 06:59 06:59 06:59 Intake Total 1540 1120 Balance 1540 1120 Result Diagrams: 08/12/19 05:30 08/12/19 05:30 Hospitalist ROS - Medication Medications: Active Medications Generic Name Dose Route Start Last Admin Trade Name Freq PRN Reason Stop Dose Admin Acetaminophen 650 mg 08/10/19 14:53 08/11/19 00:20 Tylenol PO 650 mg Q6H PRN Administration Headache/Fever/Mild Pain (1-3) Albuterol/Ipratropium 3 ml 08/10/19 14:58 08/11/19 14:49 Duoneb NEB 3 ml [id number] PRN Administration SOB &/or Wheezing Amlodipine Besylate 5 mg 08/11/19 09:00 08/11/19 10:09 Norvasc PO 5 mg DAILY JOSE Administration Enoxaparin Sodium 40 mg 08/11/19 09:00 08/11/19 10:09 Lovenox SC 40 mg 0900 JOSE Administration Escitalopram Oxalate 10 mg 08/11/19 09:00 08/11/19 10:09 Lexapro PO 10 mg DAILY JOSE Administration Famotidine 20 mg 08/11/19 21:00 08/11/19 20:28 Pepcid PO 20 mg HS JOSE Administration Gabapentin 300 mg 08/11/19 09:00 08/11/19 20:28 Neurontin PO 300 mg TID JOSE Administration Potassium Chloride/Sodium Chloride 1,000 mls @ 100 mls/hr 08/11/19 15:00 01:49 1/2 Ns W/Kcl 20 Meq IV Not Given .Q10H JOSE Lisinopril 20 mg 08/11/19 09:00 08/11/19 10:10 Zestril PO 20 mg DAILY JOSE Administration Mometasone Furoate/Formoterol Fumar 2 puff 08/11/19 18:30 08/12/19 07:54 Dulera 100 Mcg/5 Mcg Inhaler INH 2 puff BID-RT JOSE Administration Ondansetron HCl 4 mg 08/10/19 14:53 08/11/19 10:16 Zofran IVP 4 mg Q6H PRN Administration Nausea/Vomiting Vancomycin HCl 125 mg 08/10/19 18:00 08/12/19 05:20 First Vancomycin PO 125 mg Q6HR JOSE Administration - Exam General Appearance: NAD, awake alert Eye: PERRL, anicteric sclera ENT: normocephalic atraumatic, moist mucosa Neck: supple, no JVD Heart: RRR, no murmur, no gallops, no rubs Respiratory: CTAB, no wheezes, no rales, no ronchi Gastrointestinal: soft, non-tender, non-distended, normal bowel sounds Extremities: no cyanosis, no clubbing, no edema Skin: no lesions, no rashes Neurological: cranial nerve grossly intact, normal sensation to touch, no weakness, no focal deficits Musculoskeletal: normal tone Psychiatric: normal affect, normal behavior, A&O x 3 Hosp A/P - Plan 79 year old female being treated for: # sepsis secondary to C difficile colitis - WBC improved today, trend CBC daily , VS normotensive and HR 58, continue PO vanc, improvement in symptoms noted - follow blood cultures - stool studies reviewed, C diff antigen stool positive, all other negative # acute kidney injury - resolved currently, suspect secondary to hypovolemia and diarrhea, continue IV hydration and trend daily ,will hold lisinopril for 48 hours # HTN - controlled, hold KORY inhibitor, continue amlodipine # hypokalemia - improved, continue KCl containing IVF and trend BMP daily # COPD exacerbation - improving, no wheezing today, no steroids with infection, duoneb PRN # history of DJD - continue PRN pain medication # HLD - outpatient management, continue home meds as appropriate # DVT and GI ppl All problems new to me, significant diarrhea and continued symptoms will need close monitoring on med surg floor and cannot go home until symptoms improved and is able to thrive off of IV fluids
[2019-08-12] MEDS: Lisinopril 20 MG TAB PO SCH ×2 (09:17→09:45)
[2019-08-12] MEDS: Escitalopram Oxalate 10 mg Tablet PO SCH (09:18)
[2019-08-12] MEDS: Gabapentin 300 MG CAP PO SCH ×3 (09:18→20:59)
[2019-08-12] MEDS: Amlodipine 5 MG TAB PO SCH (09:18)
[2019-08-12] MEDS: Enoxaparin Sodium 40 MG/0.4 ML SYRINGE SC SCH (09:19)
--- NOTE | 2019-08-12 19:52 | CON ---
DATE OF CONSULTATION: 08/12/2019 REASON FOR CONSULTATION: Recurrence of Clostridium difficile colitis. HISTORY OF PRESENT ILLNESS: An 79-year-old whom I had seen just a few weeks ago when she presented with a history of hypertension, COPD, and C difficile colitis recurrence. At that time, she was treated with vancomycin. At this time, she had a tapering dose. She finished the tapering phase and immediately after had another episode, which she was readmitted for. This was associated with low-grade temperature elevation. No headaches. No visual symptoms, sore throat, odynophagia, or dysphagia. No cough or sputum production. No chest pain. Mild abdominal cramps. No genitourinary symptoms. No joint symptoms. PAST MEDICAL HISTORY: Hypertension, COPD, C difficile colitis x2, hysterectomy, and oral surgery. SOCIAL HISTORY: She is a former smoker, quit more than 10 years ago. Lives alone. Drinks occasionally. ALLERGIES: CEPHALOSPORINS, IODINE, AND PENICILLIN. CURRENT MEDICATIONS: 1. Tylenol. 2. [place]. 3. Xanax. 4. Norvasc. 5. Lovenox. 6. Lexapro. 7. Pepcid. 8. Neurontin. 9. Zestril. 10. Oral vancomycin. 11. Mometasone. FAMILY HISTORY: Noncontributory. PHYSICAL EXAMINATION: VITAL SIGNS: T-max 100.7, afebrile since, blood pressure 120/70, pulse is 58, respirations 16, and O2 saturation 94%. GENERAL: Appears in no distress, bit disheveled. SKIN: Normal peripheral IV access. Voiding in the toilet. No lymphadenopathy. HEENT: Ocular movements conjugate. Sclerae white. Pupils are equal. Oral cavity, normal. LUNGS: Clear to auscultation and percussion. HEART: Normal. ABDOMEN: Mildly distended, mildly tender to palpation. Bowel sounds are increased. MUSCULOSKELETAL: No joint inflammatory activity. No edema. EXTREMITIES: Pulses are 1+ in dorsalis pedis. NEUROLOGIC: Nonfocal. LABORATORY DATA: White cell count on arrival 21,000 down to 11.3, hemoglobin 9.5, platelets 184 with 75% neutrophils. Sodium 137 and creatinine 1.53 down to 0.99. She had a chest x-ray for imaging on admission with normal findings. ASSESSMENT: Recurrent Clostridium difficile, having failed tapering vancomycin schedule already. She has a Diana score of 2, so qualifies for severe disease, but she appears to be improving. We will switch her to Dificid treated for 10 to 14 days. After that, she is going to need a fecal matter transplantation and will have to be referred to GI for that. Job ID: [id number]
[2019-08-12] MEDS: Fidaxomicin 200 MG TAB PO SCH (20:59)
[2019-08-12] MEDS: Famotidine 20 MG TAB PO SCH (20:59)
[2019-08-13] MEDS ORDERED: diphenhydrAMINE 50 MG/ML VIAL IVP SCH (00:15)
[2019-08-13] MEDS: diphenhydrAMINE 25 MG CAP PO PRN ×3 (00:23→21:15)
[2019-08-13 06:21] LABS: #Eosinphils 0.6 thou/uL (0.0-0.7); #Lymphocytes 1.4 thou/uL (1.20-3.40); #Monocytes 0.8 thou/uL (0.11-0.59); #Neutrophils 6.5 thou/uL (1.40-6.50); %Basophils 0.2 % (0.0-1.0); %Eosinophils 6.9 % (0.0-10.0); %Lymphocytes 14.9 % (21.0-51.0); %Monocytes 8.4 % (0.0-10.0); %Neutrophils 69.8 % (42.0-75.0); Hemoglobin 9.5 g/dL (12.0-16.0); Mean Corpuscular HGB CONC 31.6 g/dL (32.0-36.0); Mean Corpuscular Hemoglobin 28.5 pg (27.0-31.0); Mean Corpuscular Volume 90.2 fL (78.0-98.0); Mean Platelet Volume 7.5 fL (7.4-10.4); Platelet Count 210 thou/uL (130-400); RBC Distribution Width 13.2 % (11.5-14.5); Red Blood Cell (RBC) Count 3.32 mill/uL (4.20-5.40); White Blood Cell (WBC) Count 9.4 thou/uL (4.8-10.8)
[2019-08-13 06:39] LABS: Anion Gap 8 mmol/L (10-20); BUN (Urea Nitrogen) 14 mg/dL (9.8-20.1); Calc. Creatinine Clearance 44 mL/min (70-130); Calcium 8.4 mg/dL (7.8-10.44); Carbon Dioxide 21 mmol/L (23-31); Chloride 113 mmol/L (98-107); Estimated GFR-MDRD 56; Glucose 83 mg/dL (83-110); Sodium 138 mmol/L (136-145)
[2019-08-13] MEDS: Mometasone/Formoterol 120 PUFF INHALER INH SCH ×2 (06:52→18:20)
[2019-08-13] MEDS: Amlodipine 5 MG TAB PO SCH (09:20)
[2019-08-13] MEDS: Escitalopram Oxalate 10 mg Tablet PO SCH (09:20)
[2019-08-13] MEDS: Fidaxomicin 200 MG TAB PO SCH ×2 (09:20→21:15)
[2019-08-13] MEDS: Gabapentin 300 MG CAP PO SCH ×3 (09:20→21:15)
[2019-08-13] MEDS: 1/2 NS w/KCL 20 mEq 1,000 ML IV SCH ×2 (09:21→20:00)
[2019-08-13] MEDS: Enoxaparin Sodium 40 MG/0.4 ML SYRINGE SC SCH (09:21)
[2019-08-13] MEDS ORDERED: Lactinex Tablet PO SCH (13:30)
[2019-08-13] MEDS: Lidocaine 5% Patch TD SCH ×2 (14:10→21:29)
--- NOTE | 2019-08-13 17:32 | PDOC.HOSPP ---
- Subjective Encounter Date: 08/13/19 Encounter Time: 17:30 Subjective: Patient in bed, weak still, had appx 15 BMs last night, mild abdominal pain, nausea. Overall symptoms improved. Has chronic sciatica L sided with minimal improvement on substantial gabapentin dose, requests alternate medication - Objective Vital Signs & Weight: Vital Signs (12 hours) Temp Pulse Resp BP BP Pulse Ox 08/13/19 09:20 74 148/73 H 08/13/19 08:00 95 08/13/19 07:54 98.3 F 88 18 148/73 H 95 08/13/19 06:52 66 14 96 Weight Admit Weight 140 lb 3.5 oz Weight 132 lb 6.4 oz I&O: 08/12/19 08/13/19 08/14/19 06:59 06:59 06:59 Intake Total 1120 2400 Balance 1120 2400 Result Diagrams: 08/13/19 05:58 08/13/19 05:58 Hospitalist ROS - Medication Medications: Active Medications Generic Name Dose Route Start Last Admin Trade Name Freq PRN Reason Stop Dose Admin Acetaminophen 650 mg 08/10/19 14:53 08/11/19 00:20 Tylenol PO 650 mg Q6H PRN Administration Headache/Fever/Mild Pain (1-3) Albuterol/Ipratropium 3 ml 08/10/19 14:58 08/11/19 14:49 Duoneb NEB 3 ml [id number] PRN Administration SOB &/or Wheezing Amlodipine Besylate 5 mg 08/11/19 09:00 08/13/19 09:20 Norvasc PO 5 mg DAILY JOSE Administration Diphenhydramine HCl 25 mg 08/13/19 00:07 08/13/19 09:19 Benadryl PO 25 mg Q6H PRN Administration Itching & Insomnia Enoxaparin Sodium 40 mg 08/11/19 09:00 08/13/19 09:21 Lovenox SC Not Given 899 JOSE Escitalopram Oxalate 10 mg 08/11/19 09:00 08/13/19 09:20 Lexapro PO 10 mg DAILY JOSE Administration Famotidine 20 mg 08/11/19 21:00 08/12/19 20:59 Pepcid PO 20 mg HS JOSE Administration Fidaxomicin 200 mg 08/12/19 21:00 08/13/19 09:20 Dificid PO 200 mg BID JOSE Administration Gabapentin 300 mg 08/11/19 09:00 08/13/19 14:10 Neurontin PO 300 mg TID JOSE Administration Potassium Chloride/Sodium Chloride 1,000 mls @ 100 mls/hr 08/11/19 15:00 09:21 1/2 Ns W/Kcl 20 Meq IV 1,000 mls .Q10H JOSE Administration Lidocaine 1 patch 08/13/19 14:00 08/13/19 14:10 Lidoderm 5% Patch TD 1 patch 1400 JOSE Administration Lisinopril 20 mg 08/11/19 09:00 08/12/19 09:45 Zestril PO Not Given DAILY JOSE Mometasone Furoate/Formoterol Fumar 2 puff 08/11/19 18:30 08/13/19 06:52 Dulera 100 Mcg/5 Mcg Inhaler INH 2 puff BID-RT JOSE Administration Ondansetron HCl 4 mg 08/10/19 14:53 08/11/19 10:16 Zofran IVP 4 mg Q6H PRN Administration Nausea/Vomiting - Exam General Appearance: NAD, awake alert Eye: PERRL, anicteric sclera ENT: normocephalic atraumatic, moist mucosa Neck: supple, symmetric, no JVD Heart: RRR, no murmur, no gallops, no rubs Respiratory: CTAB, no wheezes, no rales, no ronchi Gastrointestinal: soft, non-tender, non-distended, normal bowel sounds Extremities: no cyanosis, no clubbing, no edema Skin: no lesions, no rashes Neurological: cranial nerve grossly intact, normal sensation to touch, no weakness, no focal deficits Musculoskeletal: normal strength, no muscle wasting Psychiatric: normal affect, normal behavior, A&O x 3 Hosp A/P - Plan 79 year old female being treated for: # sepsis secondary to C difficile colitis - WBC improved today, trend CBC daily , VS normotensive and pulse normal now, continue PO vanc/fidaxomycin, interval improvement in symptoms noted - follow blood cultures - stool studies reviewed, C diff antigen stool positive, all other negative - start fiber/lactobacillus supplements, continue IVF - 15 episodes diarrhea last night - appreciate infectious disease evaluation # acute kidney injury - resolved currently, suspect secondary to hypovolemia and diarrhea, continue IV hydration and trend daily ,will hold lisinopril for 48 hours # HTN - controlled, hold KORY inhibitor, continue amlodipine # hypokalemia - improved, continue KCl containing IVF and trend BMP daily # COPD exacerbation - resolved, no wheezing today, no steroids with infection, duoneb PRN # history of DJD - continue PRN pain medication # HLD - outpatient management, continue home meds as appropriate # DVT and GI ppl significant diarrhea and continued symptoms will need close monitoring on med surg floor and cannot go home until symptoms improved and is able to thrive off of IV fluids
[2019-08-13] MEDS: Famotidine 20 MG TAB PO SCH (21:15)
[2019-08-13] MEDS: Calcium Polycarbophil 625 MG TAB PO SCH (21:16)
[2019-08-14] MEDS: Lidocaine Patch Removal 1 EACH TOP SCH ×2 (03:25→09:18)
[2019-08-14 06:23] LABS: #Eosinphils 0.5 thou/uL (0.0-0.7); #Lymphocytes 1.2 thou/uL (1.20-3.40); #Monocytes 0.9 thou/uL (0.11-0.59); #Neutrophils 6.2 thou/uL (1.40-6.50); %Basophils 0.2 % (0.0-1.0); %Eosinophils 5.4 % (0.0-10.0); %Lymphocytes 13.1 % (21.0-51.0); %Monocytes 10.4 % (0.0-10.0); %Neutrophils 70.8 % (42.0-75.0); Hemoglobin 9.7 g/dL (12.0-16.0); Mean Corpuscular HGB CONC 30.9 g/dL (32.0-36.0); Mean Corpuscular Hemoglobin 27.6 pg (27.0-31.0); Mean Corpuscular Volume 89.3 fL (78.0-98.0); Mean Platelet Volume 7.3 fL (7.4-10.4); Platelet Count 241 thou/uL (130-400); RBC Distribution Width 13.3 % (11.5-14.5); Red Blood Cell (RBC) Count 3.51 mill/uL (4.20-5.40); White Blood Cell (WBC) Count 8.8 thou/uL (4.8-10.8)
[2019-08-14 06:34] LABS: Anion Gap 8 mmol/L (10-20); BUN (Urea Nitrogen) 11 mg/dL (9.8-20.1); Calc. Creatinine Clearance 45 mL/min (70-130); Calcium 8.6 mg/dL (7.8-10.44); Carbon Dioxide 22 mmol/L (23-31); Chloride 115 mmol/L (98-107); Estimated GFR-MDRD 57; Glucose 85 mg/dL (83-110); Potassium 4.2 mmol/L (3.5-5.1); Sodium 141 mmol/L (136-145)
[2019-08-14] MEDS: 1/2 NS w/KCL 20 mEq 1,000 ML IV SCH ×3 (07:12→21:35)
[2019-08-14] MEDS: Mometasone/Formoterol 120 PUFF INHALER INH SCH ×2 (07:30→19:21)
[2019-08-14] MEDS: Calcium Polycarbophil 625 MG TAB PO SCH ×2 (09:08→20:34)
[2019-08-14] MEDS: Amlodipine 5 MG TAB PO SCH (09:08)
[2019-08-14] MEDS: Gabapentin 300 MG CAP PO SCH ×3 (09:08→20:34)
[2019-08-14] MEDS: Escitalopram Oxalate 10 mg Tablet PO SCH (09:08)
[2019-08-14] MEDS: Lactinex Tablet PO SCH (09:09)
[2019-08-14] MEDS: Enoxaparin Sodium 40 MG/0.4 ML SYRINGE SC SCH (09:09)
[2019-08-14] MEDS: diphenhydrAMINE 25 MG CAP PO PRN (09:15)
[2019-08-14] MEDS: Fidaxomicin 200 MG TAB PO SCH ×2 (09:15→20:34)
--- NOTE | 2019-08-14 12:40 | PDOC.HOSPP ---
- Subjective Encounter Date: 08/14/19 Encounter Time: 12:38 Subjective: Chief complaint: diarrhea Subjective: patient in bed, continued to have diarrhea overnight, about same amount as previous (10-15 stools), she reports is slightly improved and less abdominal pain, is up and active today whereas has been in bed sleeping previuos days. No chest pain or shortness of breath. - Objective Vital Signs & Weight: Vital Signs (12 hours) Temp Pulse Resp BP BP Pulse Ox 08/14/19 09:08 58 L 164/79 H 08/14/19 08:00 98 08/14/19 07:42 98.2 F 58 L 17 164/79 H 98 08/14/19 07:30 59 L 16 08/14/19 04:00 18 Weight Admit Weight 140 lb 3.5 oz Weight 139 lb I&O: 08/13/19 08/14/19 08/15/19 06:59 06:59 06:59 Intake Total 2400 Balance 2400 Result Diagrams: 08/14/19 05:44 08/14/19 05:44 Hospitalist ROS - Medication Medications: Active Medications Generic Name Dose Route Start Last Admin Trade Name Freq PRN Reason Stop Dose Admin Acetaminophen 650 mg 08/10/19 14:53 08/11/19 00:20 Tylenol PO 650 mg Q6H PRN Administration Headache/Fever/Mild Pain (1-3) Acidophilus 1 tab 08/14/19 09:00 08/14/19 09:09 Floranex PO 1 tab DAILY JOSE Administration Albuterol/Ipratropium 3 ml 08/10/19 14:58 08/11/19 14:49 Duoneb NEB 3 ml [id number] PRN Administration SOB &/or Wheezing Amlodipine Besylate 5 mg 08/11/19 09:00 08/14/19 09:08 Norvasc PO 5 mg DAILY JOSE Administration Calcium Polycarbophil 625 mg 08/13/19 21:00 08/14/19 09:08 Fibercon PO 625 mg BID JOSE Administration Diphenhydramine HCl 25 mg 08/13/19 00:07 08/14/19 09:15 Benadryl PO 25 mg Q6H PRN Administration Itching & Insomnia Enoxaparin Sodium 40 mg 08/11/19 09:00 08/14/19 09:09 Lovenox SC Not Given 09 JOSE Escitalopram Oxalate 10 mg 08/11/19 09:00 08/14/19 09:08 Lexapro PO 10 mg DAILY JOSE Administration Famotidine 20 mg 08/11/19 21:00 08/13/19 21:15 Pepcid PO 20 mg HS JOSE Administration Fidaxomicin 200 mg 08/12/19 21:00 08/14/19 09:15 Dificid PO 200 mg BID JOSE Administration Gabapentin 300 mg 08/11/19 09:00 08/14/19 09:08 Neurontin PO 300 mg TID JOSE Administration Potassium Chloride/Sodium Chloride 1,000 mls @ 100 mls/hr 08/11/19 15:00 07:12 1/2 Ns W/Kcl 20 Meq IV 1,000 mls .Q10H JOSE Administration Lidocaine 1 patch 08/13/19 14:00 08/13/19 14:10 Lidoderm 5% Patch TD 1 patch 1400 JOSE Administration Lidocaine 1 patch 08/13/19 21:00 08/13/19 21:29 Lidoderm 5% Patch TD 1 patch 2100 JOSE Administration Lisinopril 20 mg 08/11/19 09:00 08/12/19 09:45 Zestril PO Not Given DAILY [facility] Miscellaneous Medication 1 each 08/14/19 02:00 08/14/19 03:25 Lidocaine Patch Removal TOP Not Given 0200 [facility] Miscellaneous Medication 1 each 08/14/19 09:00 08/14/19 09:18 Lidocaine Patch Removal TOP 1 each 0900 JOSE Administration Mometasone Furoate/Formoterol Fumar 2 puff 08/11/19 18:30 08/14/19 07:30 Dulera 100 Mcg/5 Mcg Inhaler INH 2 puff BID-RT JOSE Administration Ondansetron HCl 4 mg 08/10/19 14:53 08/11/19 10:16 Zofran IVP 4 mg Q6H PRN Administration Nausea/Vomiting - Exam General Appearance: NAD, awake alert Eye: PERRL, anicteric sclera ENT: normocephalic atraumatic, moist mucosa Neck: supple, no JVD Heart: RRR, no murmur, no gallops, no rubs Respiratory: CTAB, no wheezes, no rales, no ronchi Gastrointestinal: soft, non-distended Gastrointestinal - other findings: mildly tender, hyperactive bowel sounds Extremities: no cyanosis, no clubbing, no edema Skin: no lesions, no rashes Neurological: cranial nerve grossly intact, normal sensation to touch, no weakness, no focal deficits Musculoskeletal: normal tone, normal strength Psychiatric: normal affect, normal behavior, A&O x 3 Hosp A/P - Plan 79 year old female being treated for: # sepsis secondary to C difficile colitis - WBC improved today, trend CBC daily , VS normotensive and pulse normal now, continue PO vanc/fidaxomycin, interval improvement in symptoms noted - follow blood cultures - stool studies reviewed, C diff antigen stool positive, all other negative - continue fiber/lactobacillus supplements and IVF - appreciate infectious disease evaluation # acute kidney injury - resolved currently, suspect secondary to hypovolemia and diarrhea, continue IV hydration and trend daily ,will hold lisinopril for 48 hours # HTN - controlled, hold KORY inhibitor, continue amlodipine # hypokalemia - improved, continue KCl containing IVF and trend BMP daily # COPD exacerbation - resolved, no wheezing today, no steroids with infection, duoneb PRN # history of DJD - continue PRN pain medication # HLD - outpatient management, continue home meds as appropriate # DVT and GI ppl significant diarrhea and continued symptoms will need close monitoring on med surg floor and cannot go home until symptoms improved and is able to thrive off of IV fluids
[2019-08-14] MEDS: Lidocaine 5% Patch TD SCH ×2 (15:13→20:33)
[2019-08-14] MEDS: HYDROcodone/Acetaminophen 7.5/325 mg Tablet PO PRN ×2 (17:18→21:35)
[2019-08-14] MEDS: Famotidine 20 MG TAB PO SCH (20:34)
[2019-08-15] MEDS: Lidocaine Patch Removal 1 EACH TOP SCH ×3 (03:10→08:58)
[2019-08-15 07:18] LABS: #Eosinphils 0.5 thou/uL (0.0-0.7); #Lymphocytes 1.4 thou/uL (1.20-3.40); #Monocytes 0.9 thou/uL (0.11-0.59); #Neutrophils 4.1 thou/uL (1.40-6.50); %Basophils 0.6 % (0.0-1.0); %Eosinophils 6.7 % (0.0-10.0); %Lymphocytes 19.9 % (21.0-51.0); %Neutrophils 59.8 % (42.0-75.0); Hemoglobin 9.7 g/dL (12.0-16.0); Mean Corpuscular HGB CONC 31.9 g/dL (32.0-36.0); Mean Corpuscular Hemoglobin 28.4 pg (27.0-31.0); Mean Platelet Volume 6.9 fL (7.4-10.4); Platelet Count 234 thou/uL (130-400); RBC Distribution Width 13.3 % (11.5-14.5); White Blood Cell (WBC) Count 6.9 thou/uL (4.8-10.8)
[2019-08-15] MEDS: Mometasone/Formoterol 120 PUFF INHALER INH SCH ×2 (07:33→19:28)
[2019-08-15 07:39] LABS: Anion Gap 6 mmol/L (10-20); BUN (Urea Nitrogen) 12 mg/dL (9.8-20.1); Calc. Creatinine Clearance 49 mL/min (70-130); Calcium 8.3 mg/dL (7.8-10.44); Carbon Dioxide 25 mmol/L (23-31); Chloride 114 mmol/L (98-107); Estimated GFR-MDRD 59; Glucose 90 mg/dL (83-110); Potassium 4.1 mmol/L (3.5-5.1); Sodium 141 mmol/L (136-145)
[2019-08-15] MEDS: 1/2 NS w/KCL 20 mEq 1,000 ML IV SCH ×2 (08:53→15:07)
[2019-08-15] MEDS: Fidaxomicin 200 MG TAB PO SCH ×2 (08:54→21:17)
[2019-08-15] MEDS: Gabapentin 300 MG CAP PO SCH ×3 (08:54→21:17)
[2019-08-15] MEDS: Lactinex Tablet PO SCH (08:54)
[2019-08-15] MEDS: Calcium Polycarbophil 625 MG TAB PO SCH ×2 (08:54→21:17)
[2019-08-15] MEDS: Escitalopram Oxalate 10 mg Tablet PO SCH (08:54)
[2019-08-15] MEDS: Amlodipine 5 MG TAB PO SCH (08:54)
[2019-08-15] MEDS: Lisinopril 20 MG TAB PO SCH (08:54)
[2019-08-15] MEDS: Enoxaparin Sodium 40 MG/0.4 ML SYRINGE SC SCH (08:55)
[2019-08-15] MEDS: HYDROcodone/Acetaminophen 7.5/325 mg Tablet PO PRN ×2 (12:01→21:18)
--- NOTE | 2019-08-15 19:49 | PDOC.HOSPP ---
- Subjective Encounter Date: 08/15/19 Encounter Time: 19:46 Subjective: CC: diarrhea Subjective: abdominal pain improved, lidocaine patch helped with sciatica, still complains of 3-4 episodes diarrhea today though which is better than yesterday. - Objective Vital Signs & Weight: Vital Signs (12 hours) Temp Pulse Resp BP BP Pulse Ox 08/15/19 08:54 65 153/72 H 08/15/19 08:00 98.2 F 65 18 153/72 H 95 Weight Admit Weight 140 lb 3.5 oz Weight 139 lb I&O: 08/14/19 08/15/19 08/16/19 06:59 06:59 06:59 Intake Total 1300 2400 Balance 1300 2400 Result Diagrams: 08/15/19 07:03 08/15/19 07:03 Hospitalist ROS - Medication Medications: Active Medications Generic Name Dose Route Start Last Admin Trade Name Freq PRN Reason Stop Dose Admin Acetaminophen 650 mg 08/10/19 14:53 08/11/19 00:20 Tylenol PO 650 mg Q6H PRN Administration Headache/Fever/Mild Pain (1-3) Hydrocodone Bitart/Acetaminophen 1 tab 08/11/19 08:10 08/15/19 12:01 [place] 7.5/325 PO 1 tab Q4H PRN Administration Pain Acidophilus 1 tab 08/14/19 09:00 08/15/19 08:54 Floranex PO 1 tab DAILY JOSE Administration Albuterol/Ipratropium 3 ml 08/10/19 14:58 08/11/19 14:49 Duoneb NEB 3 ml [id number] PRN Administration SOB &/or Wheezing Alprazolam 0.25 mg 08/10/19 14:58 08/14/19 20:35 Xanax PO 0.25 mg BIDPRN PRN Administration Anxiety Amlodipine Besylate 5 mg 08/11/19 09:00 08/15/19 08:54 Norvasc PO 5 mg DAILY JOSE Administration Calcium Polycarbophil 625 mg 08/13/19 21:00 08/15/19 08:54 Fibercon PO 625 mg BID JOSE Administration Diphenhydramine HCl 25 mg 08/13/19 00:07 08/14/19 09:15 Benadryl PO 25 mg Q6H PRN Administration Itching & Insomnia Enoxaparin Sodium 40 mg 08/11/19 09:00 08/15/19 08:55 Lovenox SC Not Given 0900 JOSE Escitalopram Oxalate 10 mg 08/11/19 09:00 08/15/19 08:54 Lexapro PO 10 mg DAILY JOSE Administration Famotidine 20 mg 08/11/19 21:00 08/14/19 20:34 Pepcid PO 20 mg HS JOSE Administration Fidaxomicin 200 mg 08/12/19 21:00 08/15/19 08:54 Dificid PO 200 mg BID JOSE Administration Gabapentin 300 mg 08/11/19 09:00 08/15/19 15:06 Neurontin PO 300 mg TID JOSE Administration Potassium Chloride/Sodium Chloride 1,000 mls @ 100 mls/hr 08/11/19 15:00 15:07 1/2 Ns W/Kcl 20 Meq IV 1,000 mls .Q10H JOSE Administration Lidocaine 1 patch 08/13/19 21:00 08/14/19 20:33 Lidoderm 5% Patch TD 1 patch 2100 JOSE Administration Lisinopril 20 mg 08/11/19 09:00 08/15/19 08:54 Zestril PO 20 mg DAILY JOSE Administration Miscellaneous Medication 1 each 08/14/19 09:00 08/15/19 08:57 Lidocaine Patch Removal TOP Not Given 0900 [facility] Miscellaneous Medication 1 each 08/15/19 09:00 08/15/19 08:58 Lidocaine Patch Removal TOP Not Given 0900 [facility] Mometasone Furoate/Formoterol Fumar 2 puff 08/11/19 18:30 08/15/19 19:28 Dulera 100 Mcg/5 Mcg Inhaler INH 2 puff BID-RT JOSE Administration Ondansetron HCl 4 mg 08/10/19 14:53 08/11/19 10:16 Zofran IVP 4 mg Q6H PRN Administration Nausea/Vomiting - Exam General Appearance: NAD, awake alert Eye: PERRL, anicteric sclera ENT: normocephalic atraumatic, no oropharyngeal lesions, moist mucosa Neck: supple, symmetric, no JVD, no thyromegaly, no lymphadenopathy, no carotid bruit Heart: RRR, no murmur, no gallops, no rubs, normal peripheral pulses Respiratory: CTAB, no wheezes, no rales, no ronchi, normal chest expansion, no tachypnea, normal percussion Gastrointestinal: soft, non-tender, non-distended, normal bowel sounds, no palpable masses, no hepatomegaly, no splenomegaly, no bruit Extremities: no cyanosis, no clubbing, no edema Skin: normal turgor, no lesions, no rashes Neurological: cranial nerve grossly intact, normal sensation to touch, no weakness, no focal deficits, no new deficit Musculoskeletal: normal tone, normal strength, no muscle wasting Psychiatric: normal affect, normal behavior, A&O x 3 Hosp A/P - Plan 79 year old female being treated for: # sepsis secondary to C difficile colitis - continue PO vanc/fidaxomycin, interval improvement in symptoms noted - follow blood cultures - negative at 5 days - stool studies reviewed, C diff antigen stool positive, all other negative - continue fiber/lactobacillus supplements and IVF - appreciate infectious disease evaluation # acute kidney injury - resolved currently, suspect secondary to hypovolemia and diarrhea, continue IV hydration and trend daily ,will hold lisinopril for 48 hours # HTN - controlled, hold KORY inhibitor, continue amlodipine # hypokalemia - improved, continue KCl containing IVF and trend BMP daily # COPD exacerbation - resolved, no wheezing today, no steroids with infection, duoneb PRN # history of DJD - continue PRN pain medication # HLD - outpatient management, continue home meds as appropriate # DVT and GI ppl significant diarrhea and continued symptoms will need close monitoring on med surg floor and cannot go home until symptoms improved and is able to thrive off of IV fluids
[2019-08-15] MEDS: Famotidine 20 MG TAB PO SCH (21:17)
[2019-08-15] MEDS: Lidocaine 5% Patch TD SCH ×2 (21:18→21:21)
[2019-08-16] MEDS: HYDROcodone/Acetaminophen 7.5/325 mg Tablet PO PRN ×3 (04:34→20:35)
[2019-08-16] MEDS: 1/2 NS w/KCL 20 mEq 1,000 ML IV SCH ×2 (04:43→15:25)
[2019-08-16] MEDS: Mometasone/Formoterol 120 PUFF INHALER INH SCH ×2 (08:08→20:04)
[2019-08-16] MEDS: Calcium Polycarbophil 625 MG TAB PO SCH ×2 (08:15→20:36)
[2019-08-16] MEDS: Escitalopram Oxalate 10 mg Tablet PO SCH (08:15)
[2019-08-16] MEDS: Enoxaparin Sodium 40 MG/0.4 ML SYRINGE SC SCH (08:15)
[2019-08-16] MEDS: Gabapentin 300 MG CAP PO SCH ×3 (08:15→20:36)
[2019-08-16] MEDS: Fidaxomicin 200 MG TAB PO SCH ×2 (08:15→20:36)
[2019-08-16] MEDS: Lactinex Tablet PO SCH (08:15)
[2019-08-16] MEDS: Lisinopril 20 MG TAB PO SCH (08:16)
[2019-08-16] MEDS: Amlodipine 5 MG TAB PO SCH (08:17)
[2019-08-16] MEDS: Lidocaine Patch Removal 1 EACH TOP SCH ×2 (09:29→09:30)
--- NOTE | 2019-08-16 14:28 | PRG ---
DATE OF SERVICE: 08/16/2019 SUBJECTIVE: She is quite improved. She estimate about 50% improvement in stooling, it is down to two a day, about soft. The pain that she was experiencing has resolved in the abdominal area. No respiratory symptoms. No genitourinary symptoms. No neurological symptoms. OBJECTIVE: VITAL SIGNS: She has been afebrile, although vital signs are fairly unremarkable. GENERAL: Appears a bit disheveled and chronically ill, but in no acute distress. LUNGS: Clear. HEART: S1 and S2, regular rate. ABDOMEN: Flat, soft, not distended. Bowel sounds are decreased. EXTREMITIES: Moves all extremities equally. LABORATORY DATA: White cell count is down to 6.9, hemoglobin 9.7, and platelets 234 with 59% neutrophils. Sodium 141, creatinine 0.92. ASSESSMENT AND DISCUSSION: Recurrent Clostridium difficile colitis, failed vancomycin treatment with taper already with a score of 2, so severe disease, but clear-cut improvement. At this time, I will go ahead and give her a prescription for Dificid and see if they can fill it in the outpatient pharmacy. I asked her to get a family member to try to fill it. After that, then she will go on FMT through GI appointment. Job ID: [id number]
--- NOTE | 2019-08-16 15:06 | PDOC.HOSPP ---
- Subjective Subjective: Seen and examined. Clinically improving. Only two bowel movements a day, versus 4 to 5 yesterday. No abdominal cramping or pain. Discussed case with infectious disease specialist who recommended oral antibiotics followed by fecal transplant therapy. All questions answered in detail. - Objective Vital Signs & Weight: Vital Signs (12 hours) Temp Pulse Resp BP BP Pulse Ox 08/16/19 08:17 54 L 145/61 H 08/16/19 08:16 145/61 H 08/16/19 08:08 60 12 08/16/19 08:00 98.1 F 54 L 16 146/61 H 95 Weight Admit Weight 140 lb 3.5 oz Weight 139 lb I&O: 08/15/19 08/16/19 08/17/19 06:59 06:59 06:59 Intake Total 1300 3750 Balance 1300 3750 Result Diagrams: 08/15/19 07:03 08/15/19 07:03 Radiology Reviewed by me: Yes Hospitalist ROS - Review of Systems All other systems reviewed; all pertinent +/- noted in HPI/Subj - Medication Medications: Active Medications Generic Name Dose Route Start Last Admin Trade Name Freq PRN Reason Stop Dose Admin Acetaminophen 650 mg 08/10/19 14:53 08/11/19 00:20 Tylenol PO 650 mg Q6H PRN Administration Headache/Fever/Mild Pain (1-3) Hydrocodone Bitart/Acetaminophen 1 tab 08/11/19 08:10 08/16/19 04:34 [place] 7.5/325 PO 1 tab Q4H PRN Administration Pain Acidophilus 1 tab 08/14/19 09:00 08/16/19 08:15 Floranex PO 1 tab DAILY JOSE Administration Albuterol/Ipratropium 3 ml 08/10/19 14:58 08/11/19 14:49 Duoneb NEB 3 ml [id number] PRN Administration SOB &/or Wheezing Alprazolam 0.25 mg 08/10/19 14:58 08/14/19 20:35 Xanax PO 0.25 mg BIDPRN PRN Administration Anxiety Amlodipine Besylate 5 mg 08/11/19 09:00 08/16/19 08:17 Norvasc PO 5 mg DAILY JOSE Administration Calcium Polycarbophil 625 mg 08/13/19 21:00 08/16/19 08:15 Fibercon PO 625 mg BID JOSE Administration Diphenhydramine HCl 25 mg 08/13/19 00:07 08/14/19 09:15 Benadryl PO 25 mg Q6H PRN Administration Itching & Insomnia Enoxaparin Sodium 40 mg 08/11/19 09:00 08/16/19 08:15 Lovenox SC Not Given 0900 JOSE Escitalopram Oxalate 10 mg 08/11/19 09:00 08/16/19 08:15 Lexapro PO 10 mg DAILY JOSE Administration Famotidine 20 mg 08/11/19 21:00 08/15/19 21:17 Pepcid PO 20 mg HS JOSE Administration Fidaxomicin 200 mg 08/12/19 21:00 08/16/19 08:15 Dificid PO 200 mg BID JOSE Administration Gabapentin 300 mg 08/11/19 09:00 08/16/19 08:15 Neurontin PO 300 mg TID JOSE Administration Potassium Chloride/Sodium Chloride 1,000 mls @ 100 mls/hr 08/11/19 15:00 04:43 1/2 Ns W/Kcl 20 Meq IV 1,000 mls .Q10H JOSE Administration Lidocaine 1 patch 08/13/19 21:00 08/15/19 21:18 Lidoderm 5% Patch TD 1 patch 2100 JOSE Administration Lidocaine 1 patch 08/15/19 21:00 08/15/19 21:21 Lidoderm 5% Patch TD Not Given 2100 JOSE Lisinopril 20 mg 08/11/19 09:00 08/16/19 08:16 Zestril PO 20 mg DAILY JOSE Administration Miscellaneous Medication 1 each 08/14/19 09:00 08/16/19 09:29 Lidocaine Patch Removal TOP Not Given 0900 [facility] Miscellaneous Medication 1 each 08/15/19 09:00 08/16/19 09:30 Lidocaine Patch Removal TOP Not Given 0900 [facility] Mometasone Furoate/Formoterol Fumar 2 puff 08/11/19 18:30 08/16/19 08:08 Dulera 100 Mcg/5 Mcg Inhaler INH 2 puff BID-RT JOSE Administration Ondansetron HCl 4 mg 08/10/19 14:53 08/11/19 10:16 Zofran IVP 4 mg Q6H PRN Administration Nausea/Vomiting - Exam General Appearance: NAD, awake alert Eye: anicteric sclera ENT: normocephalic atraumatic, moist mucosa Neck: supple, no lymphadenopathy Heart: no murmur, no gallops, no rubs Respiratory: CTAB, no wheezes, no rales, no ronchi Gastrointestinal: soft, non-tender, non-distended, normal bowel sounds, no palpable masses, no guarding, no rigidity Extremities: no edema Skin: no lesions, no rashes Neurological: cranial nerve grossly intact, no weakness, no focal deficits Musculoskeletal: normal strength, no muscle wasting Psychiatric: normal affect, A&O x 3 Hosp A/P (1) Abdominal pain Code(s): R10.9 - UNSPECIFIED ABDOMINAL PAIN Status: Acute (2) Acute kidney injury Code(s): N17.9 - ACUTE KIDNEY FAILURE, UNSPECIFIED Status: Acute (3) Clostridium difficile colitis Code(s): A04.72 - ENTEROCOLITIS D/T CLOSTRIDIUM DIFFICILE, NOT SPCF RECUR Status: Acute (4) Degenerative disc disease Code(s): HHV2662 - Status: Acute (5) Depression Code(s): F32.9 - MAJOR DEPRESSIVE DISORDER, SINGLE EPISODE, UNSPECIFIED Status : Acute (6) COPD (chronic obstructive pulmonary disease) Status: Chronic Qualifiers: Emphysema type: unspecified (7) HTN (hypertension) Code(s): I10 - ESSENTIAL (PRIMARY) HYPERTENSION Status: Chronic Qualifiers: Hypertension type: essential hypertension Qualified Code(s): I10 - Essential (primary) hypertension (8) Osteoarthritis Code(s): M19.90 - UNSPECIFIED OSTEOARTHRITIS, UNSPECIFIED SITE Status: Chronic Qualifiers: Osteoarthritis type: unspecified Laterality: unspecified laterality - Plan Plan: medical unit infectious disease consultation, recommendations appreciated gastroenterology consultation, recommendations appreciated oral antibiotics with Dificid after completion of oral antibiotics FMT per gastroenterology in the outpatient setting continue IV fluids PT/OT continue other home medications as able blood pressure control DVT prophylaxis
[2019-08-16] MEDS: Famotidine 20 MG TAB PO SCH (20:36)
[2019-08-16] MEDS: Lidocaine 5% Patch TD SCH ×2 (20:36)
[2019-08-17] MEDS: 1/2 NS w/KCL 20 mEq 1,000 ML IV SCH (02:12)
[2019-08-17] MEDS: Mometasone/Formoterol 120 PUFF INHALER INH SCH ×2 (07:55→18:11)
[2019-08-17] MEDS: Lisinopril 20 MG TAB PO SCH (08:33)
[2019-08-17] MEDS: Gabapentin 300 MG CAP PO SCH ×3 (08:33→21:54)
[2019-08-17] MEDS: Lactinex Tablet PO SCH (08:33)
[2019-08-17] MEDS: Amlodipine 5 MG TAB PO SCH (08:33)
[2019-08-17] MEDS: Enoxaparin Sodium 40 MG/0.4 ML SYRINGE SC SCH (08:34)
[2019-08-17] MEDS: Lidocaine Patch Removal 1 EACH TOP SCH ×2 (08:37)
[2019-08-17] MEDS: HYDROcodone/Acetaminophen 7.5/325 mg Tablet PO PRN ×3 (08:39→21:52)
[2019-08-17] MEDS: Calcium Polycarbophil 625 MG TAB PO SCH ×2 (08:39→21:54)
[2019-08-17 08:46] LABS: #Basophils 0.1 thou/uL (0.0-0.2); #Eosinphils 0.4 thou/uL (0.0-0.7); #Lymphocytes 1.2 thou/uL (1.20-3.40); #Monocytes 0.7 thou/uL (0.11-0.59); #Neutrophils 4.2 thou/uL (1.40-6.50); %Basophils 0.8 % (0.0-1.0); %Eosinophils 5.5 % (0.0-10.0); %Monocytes 11.3 % (0.0-10.0); %Neutrophils 64.5 % (42.0-75.0); Hemoglobin 9.9 g/dL (12.0-16.0); Mean Corpuscular HGB CONC 31.5 g/dL (32.0-36.0); Mean Corpuscular Hemoglobin 28.1 pg (27.0-31.0); Mean Corpuscular Volume 89.2 fL (78.0-98.0); Mean Platelet Volume 6.8 fL (7.4-10.4); Platelet Count 300 thou/uL (130-400); RBC Distribution Width 13.5 % (11.5-14.5); Red Blood Cell (RBC) Count 3.52 mill/uL (4.20-5.40); White Blood Cell (WBC) Count 6.6 thou/uL (4.8-10.8)
[2019-08-17 09:14] LABS: Anion Gap 8 mmol/L (10-20); BUN (Urea Nitrogen) 12 mg/dL (9.8-20.1); Calc. Creatinine Clearance 54 mL/min (70-130); Calcium 8.6 mg/dL (7.8-10.44); Carbon Dioxide 24 mmol/L (23-31); Chloride 109 mmol/L (98-107); Estimated GFR-MDRD 66; Glucose 92 mg/dL (83-110); Potassium 4.4 mmol/L (3.5-5.1); Sodium 137 mmol/L (136-145)
[2019-08-17] MEDS: Escitalopram Oxalate 10 mg Tablet PO SCH (09:30)
[2019-08-17] MEDS: Fidaxomicin 200 MG TAB PO SCH ×2 (09:30→21:54)
--- NOTE | 2019-08-17 10:42 | CON ---
DATE OF CONSULTATION: 08/16/2019 REASON FOR CONSULTATION: Recurrent C difficile diarrhea. HISTORY OF PRESENT ILLNESS: Ms. Jossy Tamez is a very pleasant 79-year-old female with history of recurrent C diff diarrhea since June of 2019. She does see Dr. Paz as her regular doctor. The patient moved from [facility] to [facility] and lives in [place] since February of 2018. The patient has history of COPD and does take nebulizer treatment on regular basis. Apparently, she came to with what appears to be viral syndrome in May 2019 with diarrhea and abdominal cramping, etc. Initially, she had a course of Flagyl and ciprofloxacin, but did not get better. She was hospitalized subsequently and was found to have C difficile colitis. Apparently, she has had vancomycin treatment at least 2 or 3 times a year, so she is on vancomycin taper for a while. She did well after on vancomycin with her diarrhea came back and she is hospitalized this time. The diarrhea is not as bad as before. The stool is soft and at times, watery and has mucoid. There is no bleeding of stool. No abdominal pain. No nausea, no vomiting. Since previous episode, she actually felt miserable, felt bloated and nauseous, but this time, the diarrhea is not as bad and have the symptoms not really, very mild. She appears very comfortable, looks very healthy and nontoxic and in no distress. The patient is on Dificid at the present time. She has been seeing Dr. Marco Mckenzie since her diarrheal illness in May 2019. The patient has had no hematochezia. No fever. At the present time, she is on Dificid and her diarrhea actually has improved. She has had only 2 stools today. Stools are soft. She has no abdominal pain. It was felt by Dr. Mckenzie that the patient hardly undergo a fecal microbial transplant in the future because of recurrent C difficile diarrhea. At the present time, she appears very comfortable, in no acute distress. She never had a colonoscopy all the life. No relevant history. ALLERGIES: CEPHALOSPORINS, IODINE, PENICILLIN. SOCIAL HISTORY: The patient is a former smoker. Quit smoking more than 10 years ago. She admits to smoking pack a day of cigarettes per day. Does not drink alcohol. MEDICAL ILLNESSES: 1. Hypertension. 2. COPD. 3. Recurrent C difficile colitis in May 2019. 4. Hysterectomy. 5. Oral surgery. MEDICATIONS: Include, 1. Tylenol. 2. [place]. 3. Xanax. 4. Norvasc. 5. Lovenox. 6. She is on Lexapro. 7. Pepcid. 8. Neurontin. 9. Zestril. 10. Oral vancomycin, which is now changed to Dificid. 11. She also on mometasone. FAMILY HISTORY: Unremarkable. REVIEW OF SYSTEMS: A 10-point system reviewed. HEAD: No headache, no dizziness. EYES: No diplopia. No impaired vision. EARS: She has mildly hearing impairment. No history of any ear pain or discharge from the ear. NOSE: No nosebleed. THROAT: No dysphagia or odynophagia. LUNGS: History of COPD. Has history of cough and also dyspnea on her nebulizer. CARDIOVASCULAR: No chest pain. No palpitation. No dyspnea, orthopnea, or PND. GI: Diarrhea seems to be getting better as she has only stool today. She did not have any pain. No nausea or vomiting. GENITOURINARY: No dysuria, hematuria, or frequency of urination. MUSCULOSKELETAL: No pain, the stiffness, or any limited movement. NEUROPSYCHIATRY: No depression or anxiety. PHYSICAL EXAMINATION: GENERAL: She is a very pleasant female, appears very comfortable. She is in no distress. VITAL SIGNS: She is afebrile. Her pulse is 54, blood pressure is 146/61. HEENT: Conjunctivae clear. NECK: Supple. No adenitis or thyromegaly noted. CARDIOVASCULAR SYSTEM: First and second heart sounds heard. LUNGS: Clear to auscultation. ABDOMEN: Soft and abdomen is nontender. No organomegaly. No masses. Bowel sounds normal. EXTREMITIES: Reveal no edema. LABORATORY DATA: From yesterday. CBC; WBC 6900, hemoglobin 9.7, hematocrit 30.3, MCV 89, platelet count 234,000, polymorphs 59, lymphocytes 19, monocytes 13. Serum chemistries; sodium is 141, potassium 4.1, chloride 114, bicarb 25, BUN is 12, creatinine is 0.92, glucose 90, calcium 8.3. Stool for C difficile came back positive for both toxin antigen. She also had ova and parasites, culture, Campylobacter all came back negative. IMPRESSION: 1. Recurrent C difficile colitis and this was treated at the admission since June 2019. She has . She is actually doing much better. She has had only stool today and is not toxic, and she is tolerating diet. 2. Chronic obstructive pulmonary disease. 3. Previous hysterectomy. RECOMMENDATION: 1. Continue Dificid. 2. I defers Ms. Tamez about having had a fecal microbial transplant which can be done as an outpatient. If she is doing much better and her stool frequency is much less, she can probably go home tomorrow on Dificid. After Dificid therapy is completed, I will plan to bring her as an outpatient for colonoscopy with the fecal microbial transplant. This was explained to the patient, who has agreed. Job ID: [id number]
--- NOTE | 2019-08-17 15:14 | PRG ---
DATE OF SERVICE: 08/17/2019 SUBJECTIVE: This is an 79-year-old female with recurrent Clostridium difficile diarrhea. The patient has 3 course of vancomycin and Flagyl. She also had a vancomycin taper. She was hospitalized at this time with recurrence of Clostridium difficile diarrhea. She had positive antigen and toxin. She is on Dificid. She had two stools yesterday and one stool today. She has good appetite. No abdominal pain. No nausea. No vomiting. I did talk to her about fecal microbial transplant. I explained to her that she needs to complete the 2 weeks of Dificid before she can undergo fecal microbial transplant. Her daughter and the patient also were determined that right away. I explained to her OBJECTIVE: VITAL SIGNS: Stable, pulse is 64, blood pressure 145/61. CARDIOVASCULAR: First and second hearts sounds are normal. LABORATORY DATA: WBC 6,600, hemoglobin 9.9, platelets 300,000. RECOMMENDATION: 1. Continue Dificid. 2. The patient was asked to come back and see me for fecal microbial transplant in next 2 weeks after completion of Dificid. Dr. Steffen Hawkins will be covering me. I will be out of town until the 01 of September. Job ID: [id number]
--- NOTE | 2019-08-17 15:57 | PDOC.HOSPP ---
- Subjective Encounter Date: 08/17/19 Encounter Time: 14:53 Subjective: 79 y/o female with COPD, HTN, DJD and prior C dif on vanc admitted with worsening abdominal pain associated diarrhea and nausea. 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 Started on dificid with improvement. stool transplant is contemplated. abdominal pain and nausea have subsided and stool consistency is improving. has had 3 Bm already today. - Objective Vital Signs & Weight: Vital Signs (12 hours) Temp Pulse Resp BP BP Pulse Ox 08/17/19 08:33 63 145/61 H 08/17/19 08:20 98.2 F 64 18 145/61 H 96 08/17/19 08:00 96 08/17/19 07:55 63 16 94 L Weight Admit Weight 140 lb 3.5 oz Weight 139 lb I&O: 08/16/19 08/17/19 08/18/19 06:59 06:59 06:59 Intake Total 3750 4557 360 Balance 3750 4557 360 Result Diagrams: 08/17/19 08:27 08/17/19 08:27 Hospitalist ROS - Medication Medications: Active Medications Generic Name Dose Route Start Last Admin Trade Name Freq PRN Reason Stop Dose Admin Acetaminophen 650 mg 08/10/19 14:53 08/11/19 00:20 Tylenol PO 650 mg Q6H PRN Administration Headache/Fever/Mild Pain (1-3) Hydrocodone Bitart/Acetaminophen 1 tab 08/11/19 08:10 08/17/19 08:39 [place] 7.5/325 PO 1 tab Q4H PRN Administration Pain Acidophilus 1 tab 08/14/19 09:00 08/17/19 08:33 Floranex PO 1 tab DAILY JOSE Administration Albuterol/Ipratropium 3 ml 08/10/19 14:58 08/11/19 14:49 Duoneb NEB 3 ml [id number] PRN Administration SOB &/or Wheezing Alprazolam 0.25 mg 08/10/19 14:58 08/14/19 20:35 Xanax PO 0.25 mg BIDPRN PRN Administration Anxiety Amlodipine Besylate 5 mg 08/11/19 09:00 08/17/19 08:33 Norvasc PO 5 mg DAILY JOSE Administration Calcium Polycarbophil 625 mg 08/13/19 21:00 08/17/19 08:39 Fibercon PO 625 mg BID JOSE Administration Diphenhydramine HCl 25 mg 08/13/19 00:07 08/14/19 09:15 Benadryl PO 25 mg Q6H PRN Administration Itching & Insomnia Enoxaparin Sodium 40 mg 08/11/19 09:00 08/17/19 08:34 Lovenox SC Not Given 09 JOSE Escitalopram Oxalate 10 mg 08/11/19 09:00 08/17/19 09:30 Lexapro PO 10 mg DAILY JOSE Administration Famotidine 20 mg 08/11/19 21:00 08/16/19 20:36 Pepcid PO 20 mg HS JOSE Administration Fidaxomicin 200 mg 08/12/19 21:00 08/17/19 09:30 Dificid PO 200 mg BID JOSE Administration Gabapentin 300 mg 08/11/19 09:00 08/17/19 14:25 Neurontin PO 300 mg TID JOSE Administration Lidocaine 1 patch 08/13/19 21:00 08/16/19 20:36 Lidoderm 5% Patch TD 1 patch 2100 JOSE Administration Lidocaine 1 patch 08/15/19 21:00 08/16/19 20:36 Lidoderm 5% Patch TD 1 patch 2100 JOSE Administration Lisinopril 20 mg 08/11/19 09:00 08/17/19 08:33 Zestril PO 20 mg DAILY JOSE Administration Miscellaneous Medication 1 each 08/14/19 09:00 08/17/19 08:37 Lidocaine Patch Removal TOP 1 each 899 JOSE Administration Miscellaneous Medication 1 each 08/15/19 09:00 08/17/19 08:37 Lidocaine Patch Removal TOP 1 each 00 JOSE Administration Mometasone Furoate/Formoterol Fumar 2 puff 08/11/19 18:30 08/17/19 07:55 Dulera 100 Mcg/5 Mcg Inhaler INH 2 puff BID-RT JOSE Administration Ondansetron HCl 4 mg 08/10/19 14:53 08/11/19 10:16 Zofran IVP 4 mg Q6H PRN Administration Nausea/Vomiting - Exam General Appearance: awake alert Eye: anicteric sclera ENT: normocephalic atraumatic Neck: supple, symmetric, no JVD Heart: RRR Respiratory: no wheezes, no rales, no ronchi, normal chest expansion Gastrointestinal: soft, non-tender, non-distended, normal bowel sounds Extremities: no cyanosis, no edema Neurological: cranial nerve grossly intact, no focal deficits Neurological - other findings: hard of hearing Psychiatric: normal affect, A&O x 3 Hosp A/P (1) Clostridium difficile colitis Code(s): A04.72 - ENTEROCOLITIS D/T CLOSTRIDIUM DIFFICILE, NOT SPCF RECUR Status: Acute (2) Diarrhea associated with pseudomembranous colitis Code(s): A04.72 - ENTEROCOLITIS D/T CLOSTRIDIUM DIFFICILE, NOT SPCF RECUR Status: Acute (3) Abdominal pain Code(s): R10.9 - UNSPECIFIED ABDOMINAL PAIN Status: Acute (4) Acute kidney injury Code(s): N17.9 - ACUTE KIDNEY FAILURE, UNSPECIFIED Status: Acute (5) COPD (chronic obstructive pulmonary disease) Status: Chronic Qualifiers: Emphysema type: unspecified (6) HTN (hypertension) Code(s): I10 - ESSENTIAL (PRIMARY) HYPERTENSION Status: Chronic Qualifiers: Hypertension type: essential hypertension Qualified Code(s): I10 - Essential (primary) hypertension (7) Hypokalemia Code(s): E87.6 - HYPOKALEMIA Status: Acute - Plan Continue dificid. Patient is having difficulty getting dificid prescription filled due to very high copay of 1100. Patient's is asking about alternative but patient failed vancomycin already. Will defer to ID Will keep patient in the hospital for till prescription is filled for outcome without is certain readmission GI is planning stool transplant in the outpatient DC IVF
[2019-08-17] MEDS: Famotidine 20 MG TAB PO SCH (21:54)
[2019-08-17] MEDS: Lidocaine 5% Patch TD SCH ×2 (21:55)
[2019-08-18] MEDS: Mometasone/Formoterol 120 PUFF INHALER INH SCH (07:43)
[2019-08-18] MEDS: HYDROcodone/Acetaminophen 7.5/325 mg Tablet PO PRN ×3 (08:37→19:34)
[2019-08-18] MEDS: Amlodipine 5 MG TAB PO SCH (08:38)
[2019-08-18] MEDS: Escitalopram Oxalate 10 mg Tablet PO SCH (08:38)
[2019-08-18] MEDS: Lisinopril 20 MG TAB PO SCH (08:38)
[2019-08-18] MEDS: Gabapentin 300 MG CAP PO SCH ×3 (08:38→19:34)
[2019-08-18] MEDS: Lactinex Tablet PO SCH (08:39)
[2019-08-18] MEDS: Enoxaparin Sodium 40 MG/0.4 ML SYRINGE SC SCH (08:40)
[2019-08-18] MEDS: Fidaxomicin 200 MG TAB PO SCH ×2 (09:05→19:32)
[2019-08-18] MEDS: Calcium Polycarbophil 625 MG TAB PO SCH ×2 (09:05→19:32)
[2019-08-18] MEDS: Lidocaine Patch Removal 1 EACH TOP SCH ×2 (09:11)
[2019-08-18 12:06] VITALS: BMI 28.0
--- NOTE | 2019-08-18 14:46 | PDOC.HOSPP ---
- Subjective Encounter Date: 08/18/19 Encounter Time: 10:45 Subjective: 79 y/o female with COPD, HTN, DJD and prior C dif on vanc admitted with worsening abdominal pain associated diarrhea and nausea. 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 Started on dificid with improvement. Abdominal pain and nausea have subsided and stool consistency and frequency have improved. No fever, nausea or vomiting. - Objective Vital Signs & Weight: Vital Signs (12 hours) Temp Pulse Resp BP BP BP Pulse Ox 08/18/19 12:00 98.2 F 58 L 20 126/69 95 08/18/19 10:58 97.9 F 58 L 20 133/70 95 08/18/19 08:38 65 137/78 08/18/19 08:00 99.2 F 62 16 94 L Weight Admit Weight 140 lb 3.5 oz Weight 139 lb I&O: 08/17/19 08/18/19 08/19/19 06:59 06:59 06:59 Intake Total 4557 860 360 Balance 4557 860 360 Result Diagrams: 08/17/19 08:27 08/17/19 08:27 Hospitalist ROS - Medication Medications: Active Medications Generic Name Dose Route Start Last Admin Trade Name Freq PRN Reason Stop Dose Admin Acetaminophen 650 mg 08/10/19 14:53 08/11/19 00:20 Tylenol PO 650 mg Q6H PRN Administration Headache/Fever/Mild Pain (1-3) Hydrocodone Bitart/Acetaminophen 1 tab 08/11/19 08:10 08/18/19 13:06 [place] 7.5/325 PO 1 tab Q4H PRN Administration Pain Acidophilus 1 tab 08/14/19 09:00 08/18/19 08:39 Floranex PO 1 tab DAILY JOSE Administration Albuterol/Ipratropium 3 ml 08/10/19 14:58 08/11/19 14:49 Duoneb NEB 3 ml [id number] PRN Administration SOB &/or Wheezing Alprazolam 0.25 mg 08/10/19 14:58 08/14/19 20:35 Xanax PO 0.25 mg BIDPRN PRN Administration Anxiety Amlodipine Besylate 5 mg 08/11/19 09:00 08/18/19 08:38 Norvasc PO 5 mg DAILY JOSE Administration Calcium Polycarbophil 625 mg 08/13/19 21:00 08/18/19 09:05 Fibercon PO 625 mg BID JOSE Administration Diphenhydramine HCl 25 mg 08/13/19 00:07 08/14/19 09:15 Benadryl PO 25 mg Q6H PRN Administration Itching & Insomnia Enoxaparin Sodium 40 mg 08/11/19 09:00 08/18/19 08:40 Lovenox SC 40 mg 09 JOSE Administration Escitalopram Oxalate 10 mg 08/11/19 09:00 08/18/19 08:38 Lexapro PO 10 mg DAILY JOSE Administration Famotidine 20 mg 08/11/19 21:00 08/17/19 21:54 Pepcid PO 20 mg HS JOSE Administration Fidaxomicin 200 mg 08/12/19 21:00 08/18/19 09:05 Dificid PO 200 mg BID JOSE Administration Gabapentin 300 mg 08/11/19 09:00 08/18/19 14:36 Neurontin PO 300 mg TID JOSE Administration Lidocaine 1 patch 08/13/19 21:00 08/17/19 21:55 Lidoderm 5% Patch TD 1 patch 2100 JOSE Administration Lidocaine 1 patch 08/15/19 21:00 08/17/19 21:55 Lidoderm 5% Patch TD 1 patch 2100 JOSE Administration Lisinopril 20 mg 08/11/19 09:00 08/18/19 08:38 Zestril PO 20 mg DAILY JOSE Administration Miscellaneous Medication 1 each 08/14/19 09:00 08/18/19 09:11 Lidocaine Patch Removal TOP 1 each 899 JOSE Administration Miscellaneous Medication 1 each 08/15/19 09:00 08/18/19 09:11 Lidocaine Patch Removal TOP 1 each 899 JOSE Administration Mometasone Furoate/Formoterol Fumar 2 puff 08/11/19 18:30 08/18/19 07:43 Dulera 100 Mcg/5 Mcg Inhaler INH 2 puff BID-RT JOSE Administration Ondansetron HCl 4 mg 08/10/19 14:53 08/11/19 10:16 Zofran IVP 4 mg Q6H PRN Administration Nausea/Vomiting - Exam General Appearance: awake alert Eye: anicteric sclera ENT: normocephalic atraumatic, moist mucosa Neck: supple, symmetric, no JVD Heart: RRR Respiratory: no wheezes, no rales, no ronchi, normal chest expansion, no tachypnea Gastrointestinal: soft, non-tender, non-distended, normal bowel sounds Extremities: no cyanosis, no edema Neurological: cranial nerve grossly intact, no focal deficits Psychiatric: A&O x 3 Hosp A/P (1) Clostridium difficile colitis Code(s): A04.72 - ENTEROCOLITIS D/T CLOSTRIDIUM DIFFICILE, NOT SPCF RECUR Status: Acute (2) Diarrhea associated with pseudomembranous colitis Code(s): A04.72 - ENTEROCOLITIS D/T CLOSTRIDIUM DIFFICILE, NOT SPCF RECUR Status: Acute (3) Abdominal pain Code(s): R10.9 - UNSPECIFIED ABDOMINAL PAIN Status: Acute (4) Acute kidney injury Code(s): N17.9 - ACUTE KIDNEY FAILURE, UNSPECIFIED Status: Acute (5) COPD (chronic obstructive pulmonary disease) Status: Chronic Qualifiers: Emphysema type: unspecified (6) HTN (hypertension) Code(s): I10 - ESSENTIAL (PRIMARY) HYPERTENSION Status: Chronic Qualifiers: Hypertension type: essential hypertension Qualified Code(s): I10 - Essential (primary) hypertension (7) Hypokalemia Code(s): E87.6 - HYPOKALEMIA Status: Acute - Plan Continue dificid. D/W patient's daughter, Dificid was ordered through [facility] and it may be available for brass pickler today. We will discharge patient once availability is confirmed Outpatient stool transplant planned.
[2019-08-18 18:05] VITALS: BP 117/74; TEMP 98.4
[2019-08-18] MEDS: Lidocaine 5% Patch TD SCH ×2 (18:36)
[2019-08-18] MEDS: Famotidine 20 MG TAB PO SCH (19:34)
--- NOTE | 2019-08-19 03:47 | PQF ---
ANAND GUILLERMO OBI, CHIZOBA Camryn [id number] [facility]-255 [id number] CLINICAL DOCUMENTATION CLARIFICATION FORM: POST DISCHARGE Addendum to original discharge summary date: ____ Late entry note date: __ DATE: 08/19/19 ATTN: Radha Haji Obi Please exercise your independent, professional judgment in responding to the clarification form. Clinical indicators are provided on the bottom of this form for your review Can you please further clarify is Sepsis is ruled in or ruled out? Sepsis [ x ] Ruled in diagnosis [ ] Continue to treat [ x ] Resolved [ ] Ruled out diagnosis [ ] Cannot rule out diagnosis [ ] Other diagnosis [ ] Unable to determine In addition, please specify: Present on Admission (POA): [ x ] Yes [ ] No [ ] Unable to determine For continuity of documentation, please document condition throughout progress notes and discharge summary. Thank You. CLINICAL INDICATORS - SIGNS / SYMPTOMS / LABS H and P pg.1- the patient has 2 episodes of diarrhea yesterday and 5 episodes today H and P pg.1- the patient being admitted for C diff and with diarrhea exacerbation PN 08/11 pg.1- Sepsis secondary to recurrent clostridium difficile diarrhea. Clinically , the patient improving Hospitalist PN Dr. Brown 08/15 pg.6- Sepsis secondary to C difficile colitis Hospitalist PN 08/18 Dr. Solis pg.6 -diarrhea associated with pseudomembranous colitis RISK FACTORS COPD- H and P pg.1 Hypertension- H and P pg.1 Hyperlipidemia- H and P pg.1 Diarrhea with possible Clostridium difficile recurrence- Goins nd P pg.2 Acute kidney injury- H and P pg.2 TREATMENTS Infectious Consult- Dr. Mckenzie 08/12 IV fluids- DEC 01 Stool culture- Microbiology 08/10 IV antibiotics- DEC 01 (This form is maintained as a part of the permanent medical record) 2014 [email or web address]. All Rights Reserved Sea [email or web address] [not provided] MTDD
--- NOTE | 2019-08-19 12:31 | DIS ---
DATE OF ADMISSION: 08/10/2019 DATE OF DISCHARGE: 08/18/2019 PRIMARY CARE PHYSICIAN: Dr. Cecily Paz. DISCHARGE DIAGNOSES: 1. Clostridium difficile colitis. 2. Sepsis due to Clostridium difficile colitis. 3. Diarrhea associated with pseudomembranous colitis. 4. Abdominal pain. 5. Chronic obstructive pulmonary disease exacerbation. 6. Acute kidney injury. 7. Hypertension. 8. Hypokalemia. CONSULTS: Infectious Diseases. HOSPITAL COURSE: An 79-year-old female with known history of COPD, hypertension, degenerative joint disease, and prior C diff infection, treated with oral vancomycin, admitted due to worsening abdominal pain associated with diarrhea, nausea, and fever. The patient was found to have recurrent C difficile colitis as well as COPD exacerbation. She was started on broad-spectrum antibiotic therapy initially, which was later de-escalated to oral antibiotic with improvement. Stool frequency and consistency improved and abdominal pain as well as nausea subsided. Hospital course was complicated by electrolyte derangements as well as acute kidney injury which resolved with IV fluid and repletion of electrolytes. The patient remained stable and was subsequently discharged home to complete therapy with Dificid. PHYSICAL EXAMINATION: VITAL SIGNS: Temperature 98.4, pulse 54, respiratory rate 18, SpO2 of 93% on room air, blood pressure is 117/74. GENERAL: Elderly female, in no distress. Afebrile. Anicteric. Acyanotic. HEENT: Normocephalic, atraumatic. Oral mucosa is moist. CARDIOVASCULAR: Regular rhythm and rate with normal heart sounds 1 and 2. RESPIRATORY: Fair air entry bilaterally with no obvious crackle or rhonchi or use of accessory muscles. GI: Full, soft, nontender, nondistended with normal bowel sounds. EXTREMITIES: Grossly normal looking atraumatic with no edema or erythema. UNDERWRITER SOLICITATION DIRECTOR: Conscious, alert, oriented x3 with appropriate mental status. Cranial nerves 2 through 12 are grossly intact. DISCHARGE CONDITION: Improved. DISCHARGE DISPOSITION: Home. DISCHARGE MEDICATIONS: 1. Hydrocodone/acetaminophen 1 tablet p.o. q.4 p.r.n. for pain. 2. Albuterol HFA 2 puffs inhalation p.r.n. for shortness of breath. 3. Lexapro 10 mg p.o. daily. 4. Fluticasone salmeterol (Advair) 250/50 two inhalations b.i.d. 5. Lisinopril 20 mg p.o. daily. 6. Amlodipine 5 mg p.o. daily. 7. Calcium polycarbophil 625 mg p.o. b.i.d. 8. Dificid (fidaxomicin) 200 mg p.o. b.i.d. for 10 days. 9. Gabapentin 300 mg p.o. t.i.d. TIME SPENT: This discharge took more than 35 minutes. Job ID: [id number]
== END 2019-08-18 19:55 | disposition home or self-care (01) | DRG 872 ==
LOC: ERS 11:14 → ERHOLD 15:18 → 2NO 17:33 → T4-B 08-11 20:07
PROVIDERS: ADMIT Internal Medicine; ATTEND Internal Medicine
DX: A41.4 Sepsis due to anaerobes (principal); A04.71 Enterocolitis due to Clostridium difficile, recurrent; N17.9 Acute kidney failure, unspecified; I10 Essential (primary) hypertension; E87.6 Hypokalemia; M19.90 Unspecified osteoarthritis, unspecified site; E86.1 Hypovolemia; F32.9 Major depressive disorder, single episode, unspecified; E78.5 Hyperlipidemia, unspecified; E86.0 Dehydration; Z90.710 Acquired absence of both cervix and uterus; Z88.0 Allergy status to penicillin; Z88.1 Allergy status to other antibiotic agents; Z91.041 Radiographic dye allergy status; Z79.899 Other long term (current) drug therapy; Z87.891 Personal history of nicotine dependence; J43.9 Emphysema, unspecified
CPT/HCPCS: 36415; 71046; 80048; 80053; 81003; 81015; 83605; 85025; 87040; 87045; 87046; 87205; 87324; 87328; 87329; 87427; 87449; 94640; 96360; 96361; 96365; 96367; J1650; J2405; J3370; J3480; J7620; Q0163

== ENCOUNTER 2019-09-02 12:09 | Day surgery (SDC) | payer MEDICARE ==
[2019-09-01 09:25] VITALS: BMI 26.6
[~2019-09-02 12:09] MED LIST: PROPOFOL 200 MG/20 ML VIAL ONE
--- NOTE | 2019-09-02 12:14 | HP ---
HISTORY OF PRESENT ILLNESS: This is an 79-year-old female, comes for a colonoscopy and fecal microbial transplant. The patient has had recurrent C difficile colitis. The patient has been treated with Flagyl and vancomycin in the past. The patient had recurrence of C difficile colitis and has to be treated with vancomycin taper. The patient did respond to vancomycin, but had recurrence of C diff . She was hospitalized about more than three weeks ago and was treated with Dificid. The patient comes for a colonoscopy and fecal microbial transplant today because of recurrent C difficile colitis. MEDICAL ILLNESSES: 1. Hypertension. 2. COPD. 3. Recurrent C difficile colitis. ALLERGIES: CEPHALOSPORINS, IODINE, AND PENICILLIN. SOCIAL HISTORY: The patient is a former smoker. Does not drink alcohol. PHYSICAL EXAMINATION: VITAL SIGNS: Pulse is 70, blood pressure 130/70. HEENT: Conjunctivae are clear. CARDIOVASCULAR SYSTEM: First and second heart sounds heard. LUNGS: Clear to auscultation. ABDOMEN: Soft. No organomegaly. No tenderness. No masses. Bowel sounds normal. ADMITTING DIAGNOSIS: An 79-year-old female with recurrent Clostridium difficile colitis, comes for a colonoscopy with fecal microbial transplant. Job ID: [id number]
--- NOTE | 2019-09-02 22:54 | OP ---
DATE OF PROCEDURE: 09/02/2019 PROCEDURE PERFORMED: Colonoscopy with fecal microbial transplant. PREOPERATIVE DIAGNOSIS: Recurrent Clostridium difficile colitis. POSTOPERATIVE DIAGNOSIS: 1. The mucosa appeared normal throughout the colon and no colitis seen. 2. Successful placement of fecal microbial transplant from the cecum all the way to the left colon. DESCRIPTION OF PROCEDURE: The patient was placed on her left lateral position and was given sedation by Anesthesia Department. The rectal exam was done. The scope was advanced into the rectum. No lesions felt on rectal exam. A Pentax video colonoscope was introduced into the rectum and advanced all the way into the cecum. The mucosa appeared normal throughout the colon with normal vascular pattern. The patient had large amount of bilious material throughout the colon rectum. It was very frothy and bilious. Mylicon was added to the irrigant solution. irrigated and suctioned. The mucosa appeared normal throughout the colon with normal vascular pattern. The appendiceal orifice, ileocecal wall, and cecum, no pathology. The ileocecal wall was not patent and I could not really get the scope into the ileum. The fecal microbial transplant was attached to the irrigation port and the fecal microbial transplant was implanted from the cecum all the way to the left colon. The scope was removed. DISCHARGE PLANNING: This is an 79-year-old female with recurrent Clostridium difficile colitis over the last 3-4 months. She has had treated it with vancomycin, Flagyl, and also vancomycin taper as well. Most recently, she had a 2-week course of Dificid. The patient underwent colonoscopy with fecal microbial transplant. She did well and is being discharged home. DISCHARGE INSTRUCTIONS: 1. The patient will resume diet as before. 2. She will come back to me in 2 weeks. Job ID: [id number]
== END 2019-09-02 16:40 | disposition home or self-care (01) ==
LOC: SDC 12:09
PROVIDERS: ATTEND Internal Medicine Gastroenterology
PROC: 3E0H8GC Introduction of Other Therapeutic Substance into Lower GI, Via Natural or Artificial Opening Endoscopic (ICD-10-PCS; principal; 2019-09-02)
DX: A04.71 Enterocolitis due to Clostridium difficile, recurrent (principal); I10 Essential (primary) hypertension; J44.9 Chronic obstructive pulmonary disease, unspecified; Z87.891 Personal history of nicotine dependence; Z79.899 Other long term (current) drug therapy; Z88.0 Allergy status to penicillin; Z88.1 Allergy status to other antibiotic agents; Z91.041 Radiographic dye allergy status
CPT/HCPCS: J2704

== ENCOUNTER 2019-09-08 12:29 | Outpatient (CLI) | payer MEDICARE ==
--- NOTE | 2019-09-08 13:31 | RAD ---
CHEST 2 VIEWS: Date: 09/08/19 HISTORY: Dyspnea. COMPARISON: 05/18/19, 08/10/19. FINDINGS: Scattered stable hyperinflation and chronic lung changes. Heart size is within normal limits. Minimal stable increased opacity changes overlying the costophrenic angles. IMPRESSION: Stable hyperinflation and chronic lung changes. No acute intrathoracic disease. POS: TPC
== END 2019-09-08 12:30 | disposition home or self-care (01) ==
LOC: RAD 12:29
PROVIDERS: ATTEND Internal Medicine Critical Care Medicine
DX: R06.00 Dyspnea, unspecified (principal)
CPT/HCPCS: 71046

== ENCOUNTER 2019-11-30 11:57 | Outpatient (CLI) | payer MEDICARE ==
--- NOTE | 2019-11-30 12:39 | RAD ---
XR Hip Lt 2-3 View INDICATION: Left hip pain COMPARISON: None FINDINGS: Bones: No acute osseous abnormality. Bone mineralization appears within normal limits. Hip joint: There is mild left hip osteoarthrosis. SI joints and symphysis pubis: There is mild SI joint osteoarthrosis. Intrapelvic contents: There are small phleboliths within the lower patent hemipelvis Surrounding soft tissues: Radiographically normal. IMPRESSION: 1. Mild left hip osteoarthrosis. No acute fracture or subluxation demonstrated.
== END 2019-11-30 11:58 | disposition home or self-care (01) ==
LOC: BICRAD 11:57
PROVIDERS: ATTEND Family Medicine
DX: M25.552 Pain in left hip (principal); M16.12 Unilateral primary osteoarthritis, left hip

== ENCOUNTER 2020-03-31 09:24 | Outpatient (CLI) | payer MEDICARE ==
--- NOTE | 2020-03-31 09:49 | RAD ---
Chest 2 views HISTORY: Dyspnea. COMPARISON: 09/08/2019. FINDINGS: Cardiac silhouette and pulmonary vasculature are unremarkable. Mediastinum is midline with aortic calcification. Lungs remain hyperinflated. Widespread coarsened in terstitial thickening has progressed slightly since the prior exam. No lobar consolidation, pleural fluid, or pneumothorax There are degenerative changes of the thoracic spine on the lateral view. IMPRESSION : Interval progression of widespread interstitial thickening. Pulmonary hyperinflation otherwise stable . Atherosclerosis.
== END 2020-03-31 09:25 | disposition home or self-care (01) ==
LOC: BICRAD 09:24
PROVIDERS: ATTEND Internal Medicine Critical Care Medicine
DX: R06.00 Dyspnea, unspecified (principal); I70.90 Unspecified atherosclerosis; R91.8 Other nonspecific abnormal finding of lung field
CPT/HCPCS: 71046

== ENCOUNTER 2020-09-01 10:11 | Outpatient (CLI) | payer MEDICARE ==
--- NOTE | 2020-09-01 12:16 | RAD ---
PA AND LATERAL CHEST: Date: 09/01/2020 HISTORY: Dyspnea. COMPARISON: 03/31/2020 study. FINDINGS: Heart size within normal limits. There are atherosclerotic changes of the aorta. Chronic lung changes are seen. No new process. IMPRESSION: Chronic lung change. POS: RACHNA
== END 2020-09-01 10:12 | disposition home or self-care (01) ==
LOC: BICRAD 10:11
PROVIDERS: ATTEND Internal Medicine Critical Care Medicine
DX: R06.00 Dyspnea, unspecified (principal); J98.4 Other disorders of lung
CPT/HCPCS: 71046

== ENCOUNTER 2020-12-30 14:38 | Outpatient (CLI) | payer MEDICARE | END 2020-12-30 14:39 | disposition home or self-care (01) | LOC: BICRAD 14:38 | PROVIDERS: ATTEND Family Medicine | DX: M46.1 Sacroiliitis, not elsewhere classified (principal) | CPT/HCPCS: 72202 ==

== ENCOUNTER 2021-01-19 10:45 | Outpatient (CLI) | payer MEDICARE | END 2021-01-19 10:46 | disposition home or self-care (01) | LOC: BICULT 10:45 | PROVIDERS: ATTEND Family Medicine | DX: Z13.6 Encounter for screening for cardiovascular disorders (principal); I70.0 Atherosclerosis of aorta | CPT/HCPCS: 76775 ==

== ENCOUNTER 2021-05-15 13:45 | Outpatient (CLI) | payer MEDICARE | END 2021-05-15 13:46 | disposition home or self-care (01) | LOC: BICMAMMO 13:45 | PROVIDERS: ATTEND Family Medicine | DX: Z13.820 Encounter for screening for osteoporosis (principal); M81.0 Age-related osteoporosis without current pathological fracture | CPT/HCPCS: 77080 ==

== ENCOUNTER 2021-09-05 09:26 | Outpatient (CLI) | payer MEDICARE | END 2021-09-05 09:27 | disposition home or self-care (01) | LOC: BICCT 09:26 | PROVIDERS: ATTEND Internal Medicine Critical Care Medicine | DX: R91.8 Other nonspecific abnormal finding of lung field (principal); I25.10 Atherosclerotic heart disease of native coronary artery without angina pectoris; K80.20 Calculus of gallbladder without cholecystitis without obstruction; J98.4 Other disorders of lung | CPT/HCPCS: 71250 ==

== ENCOUNTER 2021-12-26 13:01 | Outpatient (CLI) | payer MEDICARE | END 2021-12-26 13:02 | disposition home or self-care (01) | LOC: BICRAD 13:01 | PROVIDERS: ATTEND Family Medicine | DX: J44.1 Chronic obstructive pulmonary disease with (acute) exacerbation (principal) | CPT/HCPCS: 71046 ==

== ENCOUNTER 2022-09-05 11:30 | Outpatient (CLI) | payer MEDICARE | END 2022-09-05 11:31 | disposition home or self-care (01) | LOC: RAD 11:30 | PROVIDERS: ATTEND Internal Medicine Critical Care Medicine | DX: R06.00 Dyspnea, unspecified (principal); J98.4 Other disorders of lung; I70.0 Atherosclerosis of aorta | CPT/HCPCS: 71046 ==

== ENCOUNTER 2023-09-04 14:37 | Outpatient (CLI) | payer MEDICARE | END 2023-09-04 14:38 | disposition home or self-care (01) | LOC: RAD 14:37 | PROVIDERS: ATTEND Internal Medicine Critical Care Medicine | DX: R06.00 Dyspnea, unspecified (principal); J44.9 Chronic obstructive pulmonary disease, unspecified | CPT/HCPCS: 71046 ==